=== PATIENT | male | born 1935 | race Caucasian/White ===

== ENCOUNTER → 2018-01-01 09:23 | Outpatient (CLI) | payer MEDICARE, SELFPAY ==
[2018-01-01 10:48] LABS: Add Manual Diff / Slide Review NO; Basophils Percent Auto 0.9 % (0-2); Eosinophils Percent Auto 3.2 % (2-4); Hematocrit 37.1 % (41-53); Hemoglobin 12.9 g/dL (13.5-17.5); Lymphocytes Percent Auto 24.1 % (25-40); Mean Corpuscular HGB Conc 34.9 % (30-36); Mean Corpuscular Hemoglobin 36.4 PG (26-34); Mean Corpuscular Volume 104.5 fL (80-100); Monocytes Percent Auto 20.7 % (3-14); Neutrophils Absolute Auto 2400 /uL (3000-5900); Neutrophils Percent Auto 51.1 % (50-75); Platelet Count 259 X10^3/uL (150-400); Red Blood Cell Count 3.55 X10^6/uL (4.5-5.9); Red Cell Distribution Width 15.5 % (11.6-14.8); White Blood Cell Count 4.6 X10^3/uL (4.5-11.0)
[2018-01-01 11:06] LABS: Alanine Aminotransferase 30 IU/L (21-72); Albumin 4.2 g/dL (3.5-5.0); Albumin Globulin Ratio 1.3 (1.0-2.8); Alkaline Phosphatase 55 U/L (38-126); Aspartate Aminotransferase 32 IU/L (17-59); BUN Creatinine Ratio 28.6 (6-22); Bilirubin Total 0.7 mg/dL (0.2-1.3); Calcium 8.9 mg/dL (8.4-10.2); Cholesterol 148 mg/dL (140-199); Estimated Glomerular Filt Rate > 60.0 mL/min (>60); Globulin 3.3 g/dL (1.7-4.1); Glucose 102 mg/dL (80-110); HDL Cholesterol 39 mg/dL (40-60); HEMOLYSIS < 15 (0-50); LDL Cholesterol Calculated 90 mg/dL (<100); Potassium 4.5 mmol/L (3.4-5.1); Sodium 140 mmol/L (137-145); Total Protein 7.5 g/dL (6.3-8.2); Triglycerides 96 mg/dL (35-150)
[2018-01-01 11:36] LABS: Prostate Specific Antigen Scrn 1.01 ng/mL (0.1-4.0)
[2018-01-01 11:37] LABS: TSH w/ Reflex to FT4 4.29 uIU/mL (0.47-4.68)
== END ==
PROVIDERS: PCP Family Medicine; Visit Provider Family Medicine
DX: I25.10 Atherosclerotic heart disease of native coronary artery without angina pectoris (principal); I10 Essential (primary) hypertension; E78.5 Hyperlipidemia, unspecified; Z51.81 Encounter for therapeutic drug level monitoring; I48.2 Chronic atrial fibrillation
CPT/HCPCS: 36415; 80053; 80061; 84443; 85025; G0103

== ENCOUNTER → 2019-10-21 11:29 | Outpatient (CLI) | payer MEDICARE, SELFPAY ==
[2019-10-21 12:55] LABS: Add Manual Diff / Slide Review NO; Basophils Absolute Auto 0 /uL (0-100); Basophils Percent Auto 0.9 % (0-2); Eosinophils Absolute Auto 100 /uL (0-450); Eosinophils Percent Auto 2.2 % (2-4); Hematocrit 36.5 % (41-53); Hemoglobin 12.5 g/dL (13.5-17.5); Lymphocytes Absolute Auto 900 /uL (1100-4500); Lymphocytes Percent Auto 21.8 % (25-40); Mean Corpuscular HGB Conc 34.4 % (30-36); Mean Corpuscular Hemoglobin 37.6 PG (26-34); Mean Corpuscular Volume 109.3 fL (80-100); Monocytes Absolute Auto 800 /uL (0-900); Monocytes Percent Auto 18.9 % (3-14); Neutrophils Absolute Auto 2300 /uL (1500-7000); Neutrophils Percent Auto 56.2 % (50-75); Platelet Count 260 X10^3/uL (150-400); Red Blood Cell Count 3.34 X10^6/uL (4.5-5.9); Red Cell Distribution Width 13.9 % (11.6-14.8)
[2019-10-21 13:07] LABS: Alanine Aminotransferase 19 IU/L (<50); Albumin 4.5 g/dL (3.5-5.0); Albumin Globulin Ratio 1.5 (1.0-2.8); Alkaline Phosphatase 63 U/L (38-126); Aspartate Aminotransferase 38 IU/L (17-59); BUN Creatinine Ratio 26.7 (6-22); Blood Urea Nitrogen 23 mg/dL (9-20); Calcium 9.4 mg/dL (8.4-10.2); Carbon Dioxide 29 mmol/L (22-32); Chloride 101 mmol/L (98-107); Cholesterol 155 mg/dL (140-199); Estimated Glomerular Filt Rate > 60.0 mL/min (>60); Globulin 3.1 g/dL (1.7-4.1); Glucose 98 mg/dL (80-110); HDL Cholesterol 44 mg/dL (40-60); HEMOLYSIS < 15 (0-50); LDL Cholesterol Calculated 94 mg/dL (<100); Potassium 5.3 mmol/L (3.4-5.1); Sodium 138 mmol/L (137-145); Total Protein 7.6 g/dL (6.3-8.2); Triglycerides 83 mg/dL (35-150)
[2019-10-21 15:06] LABS: TSH w/ Reflex to FT4 5.16 uIU/mL (0.47-4.68)
[2019-10-21 16:11] LABS: Free T4, Direct Thyroxine 1.09 ng/dL (0.78-2.19)
== END ==
PROVIDERS: Family Provider Family Medicine; PCP Family Medicine; Referring Provider Family Medicine; Visit Provider Family Medicine
DX: E78.5 Hyperlipidemia, unspecified (principal); I10 Essential (primary) hypertension; I25.10 Atherosclerotic heart disease of native coronary artery without angina pectoris; I48.20 Chronic atrial fibrillation, unspecified
CPT/HCPCS: 36415; 80053; 80061; 84439; 84443; 85025

== ENCOUNTER → 2020-01-22 09:24 | Outpatient (CLI) | payer MEDICARE, SELFPAY ==
[2020-01-22 11:17] LABS: HEMOLYSIS < 15 (0-50); Iron 94 ug/dL (49-181)
[2020-01-22 11:28] LABS: Percent Iron Saturation 35 % (20-50); Total Iron Binding Capacity 271 ug/dL (261-462); Transferrin 191 mg/dL (206-381)
[2020-01-22 11:36] LABS: Ferritin 468 ng/mL (18-464)
[2020-01-22 12:06] LABS: Folate > 20.0 ng/mL (2.76-20.0); Vitamin B12 551 pg/mL (239-931)
== END ==
PROVIDERS: Family Provider Family Medicine; PCP Family Medicine; Referring Provider Family Medicine; Visit Provider Family Medicine
DX: D64.9 Anemia, unspecified (principal)
CPT/HCPCS: 36415; 82607; 82728; 82746; 83540; 83550

== ENCOUNTER 2020-12-27 16:27 | Observation (INO) | payer MEDICARE, SELFPAY ==
[2020-12-27] VITALS (26 sets, daily range): BP systolic 73–118; BP diastolic 39–67; PULSE 41–71; RESP 18–37; TEMP 36.2–37.2; O2SAT 89–100; BMI 20.3
--- NOTE | 2020-12-27 16:38 | ED.CHESTPAIN ---
HPI - Chest Pain General Chief Complaint: Chest Pain Stated Complaint: Chest Pain, Hard to Breathe, Shivers, Shoulder Amanuel Time Seen by Provider: 12/27/20 16:28 Source: patient Mode of arrival: Ambulatory Limitations: no limitations History of Present Illness HPI narrative: 85M former smoker with history of atrial fibrillation and hypertension presents with a chief complaint of a few hours of sharp and stabbing pain in his upper back between his shoulder blades. He feels a bit fatigued but is otherwise largely at his baseline. He has free of any fever or chills. He denies nausea, vomiting or diarrhea. He denies any changes medications. He has had no recent travel, hemoptysis or history of known cancer MD complaint: chest pain Onset (ago): hour(s) Duration: constant Onset: during rest Pain location: other Severity: moderate Quality: sharp Pain radiation: back Relieving factors: nothing Exacerbating factors: nothing Related Data Home Medications Medication Instructions Recorded Confirmed MULTIVITAMIN (One Daily 1 tab PO QDAY #0 01/02/12 12/27/20 Multivitamin) Previous Rx's Medication Instructions Recorded ciclopirox 8 % topical solution See Rx Instructions TOP DAILY #6.6 06/25/18 ml digoxin 125 mcg (0.125 mg) tablet 125 mcg PO Q DAY #90 tab 01/19/20 pravastatin 20 mg tablet 20 mg PO QDAY #90 tab 01/19/20 diltiazem HCl 180 mg capsule,24 180 mg PO DAILY #90 cap 01/27/20 hr,extended release lisinopril 20 mg tablet 20 mg PO DAILY #90 tab 02/18/20 omeprazole 20 mg capsule,delayed 20 mg PO QDAY #90 tab 08/23/20 release warfarin 5 mg tablet 5 mg PO SEE INSTRUCTIONS #100 tab 09/02/20 Allergies Allergy/AdvReac Type Severity Reaction Status Date / Time No Known Drug Allergies Allergy Verified 05/22/20 14:07 Review of Systems Constitutional Constitutional: Denies chills, Denies fatigue, Denies fever(s), Denies frequent falls, Denies lethargy and Denies weakness Eyes Eyes: Denies change in vision, Denies eye discharge, Denies irritation and Denies loss of vision ENT Ears, Nose, Mouth, and Throat: Denies change in voice, Denies dizziness, Denies neck pain, Denies sore throat and Denies throat swelling Cardiovascular Cardiovascular: Reports chest pain, Denies irregular heart rhythm, Denies lightheadedness, Denies palpitations, Denies dyspnea, Denies dyspnea on exertion and Denies orthopnea Respiratory Respiratory: Denies cough, Denies dyspnea, Denies dyspnea on exertion and Denies wheezing Gastrointestinal Gastrointestinal: Denies abdominal pain, Denies change in bowel habits, Denies diarrhea, Denies nausea and Denies vomiting Musculoskeletal Musculoskeletal: Denies neck pain and Denies numbness Integumentary/Breasts Skin/Breast: Denies pruritus, Denies erythema, Denies rash and Denies wounds Neurologic Neurologic: Denies behavioral changes, Denies confusion, Denies dizziness, Denies frequent falls, Denies loss of vision, Denies numbness and Denies weakness Psychiatric Psychiatric: Denies anxiety, Denies behavioral changes, Denies confusion, Denies depression, Denies homicidal ideation and Denies suicidal ideation Endocrine Endocrine: Denies fatigue, Denies flushing and Denies palpitations Hematologic/Lymphatic Hematologic/Lymphatic: Denies easy bruising Allergic/Immunologic Allergic/Immunologic: Denies urticaria, Denies throat swelling and Denies wheezing Patient History Medical History Bradycardia Cataract (2012) Chicken pox Chronic atrial fibrillation (2000) Colon polyps Coronary artery disease (1995) Diverticular disease Eczema Elevated PSA Essential hypertension (08/22/16) Hyperlipidemia (07/24/11) Measles Melanoma (2008) Mumps Osteoarthritis (arthritis due to wear and tear of joints) Surgical History History of colonoscopy with polypectomy (08/21/12) Status post appendectomy Social History marital status: household members: spouse Smoking Status: Former smoker alcohol intake: never substance use type: does not use Smoking Status: Former smoker Exam Narrative Exam Narrative: GENERAL: [85] year old patient appears stated age. Well-nourished, well-developed patient, in mild distress. HEAD: Atraumatic. Normocephalic. EYES: Pupils equal round and reactive. Extraocular motions intact. No scleral icterus. No injection or drainage. ENT: Nose without bleeding, purulent drainage. Throat without erythema, tonsillar hypertrophy or exudate. Airway patent. NECK: Trachea midline. Non tender CARDIOVASCULAR: Tachycardic and irregular rhythm without murmurs, gallops, or rubs. RESPIRATORY: Clear to auscultation. Breath sounds equal bilaterally. No wheezes, rales, or rhonchi. GASTROINTESTINAL: Abdomen soft, non-tender, nondistended. EXTREMITIES: No edema or joint tenderness. BACK: Nontender without deformity or crepitance. No flank tenderness. NEURO: AOx3. SKIN: No rash or erythema of visible areas Initial Vital Signs Initial Vital Signs: Vital Signs Temperature 97.1 F L 12/27/20 16:46 Pulse Rate 41 L 12/27/20 16:46 Respiratory Rate 24 12/27/20 16:46 Blood Pressure 84/49 L 12/27/20 16:46 Pulse Oximetry 99 12/27/20 16:46 Course Orders Ordered: ED Orders 12/27/20 16:39 EKG-12 Lead Stat 12/27/20 16:45 Complete Blood Count AUTO DIFF Stat Comprehensive Metabolic Panel Stat Digoxin Stat Lipase Stat Prothrombin Time INR Stat Troponin & CK Cardiac Panel Stat 12/27/20 17:26 CT angio chest abdomen pelvis Stat 12/27/20 18:05 COVID19 - ADMIT (EARLY INTERVENTION SPECIALIST swab/PCR) Stat 12/27/20 18:58 EKG-12 Lead Stat 12/27/20 19:15 NT-proBNP (BNP-Adult 18+) Stat Trop I [Troponin I] Stat 12/28/20 01:00 Troponin I Q8H 12/28/20 06:06 EC echo doppler complete Urgent 12/28/20 09:00 Troponin I Q8H Acetaminophen (Acetaminophen 325 Mg Tablet) 650 mg PO Q6HR PRN PRN Reason: Fever/Mild Pain (1-3) Hydrocodone Bitart/Acetaminophen (Hydrocodone/Acet 5/325 Tablet) 1 tab PO Q4HR PRN PRN Reason: Pain, Moderate (4-6) Digoxin (Digoxin 0.125 Mg Tablet) 0.125 mg PO DAILY CRISTIAN Diltiazem HCl (Diltiazem Cd 180 Mg Cap) 180 mg PO DAILY CRISTIAN Morphine Sulfate (Morphine 2 Mg/Ml Inj) 2 mg IV Q5MIN PRN PRN Reason: Chest Pain Multivitamins (Multivitamin 1 Tablet) 1 tab PO DAILY CRISTIAN Naloxone HCl (Naloxone 0.4 Mg/Ml Vial) 0.2 mg IV Q2MIN PRN PRN Reason: Opiate Reversal Nitroglycerin (Nitroglycerin 0.4 Mg Sl Tab) 0.4 mg SL [id number] PRN PRN Reason: Chest Pain Pantoprazole Sodium (Pantoprazole Dr 20 Mg Tablet) 20 mg PO 0600 CRISTIAN Pravastatin Sodium (Pravastatin 20 Mg Tablet) 20 mg PO DAILY CRISTIAN Discontinued Medications Sodium Chloride (Normal Saline 0.9%) 1,000 mls @ 150 mls/hr IV CONT CRISTIAN Last Infusion: 12/27/20 19:02 Dose: 0 mls/hr Documented by: Admin: 12/27/20 16:56 Dose: 150 mls/hr Documented by: RODOLFO Reevaluation(s) Reevaluation #1: Soon after patient placed in the room and wall preparing his evaluation he converts from a rapid atrial fibrillation to a bradycardia. Along with this his heart rate drops into the 40s and his pressures follows into the 70s. He is given atropine 0.5 mg IV and has an excellent response with heart rate increasing to the 60s or 70s and a blood pressure to 110. He does still have sharp pain in his back 1899 -patient continues to be stable with normalized heart rate and blood pressure. He does still have some pain in his back. Labs have been otherwise reassuring, extensive imaging show no gas trapping findings such as dissection, pulmonary embolism, AAA, pericardial effusion or other. Discussed this case with Dr. Marcum who is on-call for the patient's PCP and is happy to accept him on his service Vital Signs Vital signs: Vital Signs - 8 hr 12/27/20 16:46 12/27/20 16:48 12/27/20 16:50 Temperature 97.1 F L Pulse Rate 41 L 45 L 42 L Respiratory Rate 24 22 22 Blood Pressure 84/49 L 84/49 L 78/39 L Pulse Oximetry 99 92 12/27/20 16:52 12/27/20 17:00 12/27/20 17:10 Temperature Pulse Rate 41 L 53 L 62 Respiratory Rate 18 20 22 Blood Pressure 73/41 L 94/55 L 97/55 L Pulse Oximetry 92 97 89 L 12/27/20 17:20 12/27/20 17:21 12/27/20 17:30 Temperature Pulse Rate 62 63 61 Respiratory Rate 21 21 23 Blood Pressure 93/45 L 95/52 L Pulse Oximetry 98 98 97 12/27/20 17:40 12/27/20 17:41 12/27/20 17:50 Temperature Pulse Rate 57 L 61 62 Respiratory Rate 24 27 H Blood Pressure 98/55 L 91/52 L Pulse Oximetry 98 97 97 12/27/20 17:55 12/27/20 18:00 12/27/20 18:10 Temperature Pulse Rate 62 63 71 Respiratory Rate 20 21 26 H Blood Pressure 109/56 L 110/53 L 97/55 L Pulse Oximetry 97 99 95 12/27/20 18:20 12/27/20 18:21 12/27/20 18:30 Temperature Pulse Rate 63 60 64 Respiratory Rate 21 20 26 H Blood Pressure 118/55 L 96/49 L Pulse Oximetry 100 12/27/20 18:40 12/27/20 18:50 12/27/20 19:00 Temperature Pulse Rate 67 62 58 L Respiratory Rate 31 H 18 25 H Blood Pressure 101/67 115/55 L 109/55 L Pulse Oximetry 97 99 98 12/27/20 19:10 12/27/20 19:25 12/27/20 19:28 Temperature 99.0 F Pulse Rate 62 65 66 Respiratory Rate 37 H 24 18 Blood Pressure 114/58 L Pulse Oximetry 98 98 12/27/20 19:30 Temperature Pulse Rate 66 Respiratory Rate 26 H Blood Pressure Pulse Oximetry MDM - Chest Pain Lab Data Result diagrams: 12/27/20 16:45 12/27/20 16:45 Labs: Lab Results 12/27/20 12/27/20 12/27/20 Range/Units 16:45 16:45 16:45 WBC 8.7 (4.5-11.0) X10^3/uL RBC 3.26 L (4.5-5.9) X10^6/uL Hgb 12.1 L (13.5-17.5) g/dL Hct 35.7 L (41-53) % MCV 109.5 H (80-100) fL MCH 37.1 H (26-34) PG MCHC 33.9 (30-36) % RDW 14.3 (11.6-14.8) % Plt Count 247 (150-400) X10^3/uL Neut % (Auto) 78.7 H (50-75) % Lymph % (Auto) 8.2 L (25-40) % [place] % (Auto) 12.4 (3-14) % Eos % (Auto) 0.3 L (2-4) % Baso % (Auto) 0.4 (0-2) % Neut # (Auto) 6900 (5512-4201) /uL Lymph # (Auto) 700 L (7400-7750) /uL [place] # (Auto) 1100 H (0-900) /uL Eos # (Auto) 0 (0-450) /uL Baso # (Auto) 0 (0-100) /uL PT 36.4 H (10.1-12.7) SECONDS INR 3.2 H (0.9-1.3) Sodium 136 L (137-145) mmol/L Potassium 3.6 (3.4-5.1) mmol/L Chloride 100 (98-107) mmol/L Carbon Dioxide 28 (22-32) mmol/L BUN 24 H (9-20) mg/dL Creatinine 0.72 (0.66-1.25) mg/dL Estimated GFR > 60.0 (>60) mL/min BUN/Creatinine Ratio 33.3 H (6-22) Glucose 137 H (80-110) mg/dL Calcium 9.3 (8.4-10.2) mg/dL Total Bilirubin 1.0 (0.2-1.3) mg/dL AST 38 (17-59) IU/L ALT 21 (<50) IU/L Alkaline Phosphatase 72 (38-126) U/L Total Creatine Kinase 141 (55-170) U/L CK-MB (CK-2) 4.14 H (<2.37) ng/mL CK-MB (CK-2) Rel Index 2.9 (1.5-5.0) % Troponin I < 0.012 (0.01-0.034) ng/mL NT-Pro-B Natriuret Pep (<450) pg/mL Total Protein 7.6 (6.3-8.2) g/dL Albumin 4.4 (3.5-5.0) g/dL Globulin 3.2 (1.7-4.1) g/dL Albumin/Globulin Ratio 1.4 (1.0-2.8) Lipase 108 (23-300) U/L Digoxin (0.8-2.0) ng/mL SARS-CoV-2 (PCR) (Negative) 12/27/20 12/27/20 12/27/20 Range/Units 16:45 18:05 19:15 WBC (4.5-11.0) X10^3/uL RBC (4.5-5.9) X10^6/uL Hgb (13.5-17.5) g/dL Hct (41-53) % MCV (80-100) fL MCH (26-34) PG MCHC (30-36) % RDW (11.6-14.8) % Plt Count (150-400) X10^3/uL Neut % (Auto) (50-75) % Lymph % (Auto) (25-40) % [place] % (Auto) (3-14) % Eos % (Auto) (2-4) % Baso % (Auto) (0-2) % Neut # (Auto) (7307-8012) /uL Lymph # (Auto) (1612-7752) /uL [place] # (Auto) (0-900) /uL Eos # (Auto) (0-450) /uL Baso # (Auto) (0-100) /uL PT (10.1-12.7) SECONDS INR (0.9-1.3) Sodium (137-145) mmol/L Potassium (3.4-5.1) mmol/L Chloride (98-107) mmol/L Carbon Dioxide (22-32) mmol/L BUN (9-20) mg/dL Creatinine (0.66-1.25) mg/dL Estimated GFR (>60) mL/min BUN/Creatinine Ratio (6-22) Glucose (80-110) mg/dL Calcium (8.4-10.2) mg/dL Total Bilirubin (0.2-1.3) mg/dL AST (17-59) IU/L ALT (<50) IU/L Alkaline Phosphatase (38-126) U/L Total Creatine Kinase (55-170) U/L CK-MB (CK-2) (<2.37) ng/mL CK-MB (CK-2) Rel Index (1.5-5.0) % Troponin I < 0.012 (0.01-0.034) ng/mL NT-Pro-B Natriuret Pep 1010 H (<450) pg/mL Total Protein (6.3-8.2) g/dL Albumin (3.5-5.0) g/dL Globulin (1.7-4.1) g/dL Albumin/Globulin Ratio (1.0-2.8) Lipase (23-300) U/L Digoxin 0.9 (0.8-2.0) ng/mL SARS-CoV-2 (PCR) Negative (Negative) Imaging Data CT scan - chest: Radiologist's Impression: [address] [id number] Scan ReportSigned Patient: Da Nevarez EMR#: [id number]: [id number]:[id number]/Sex: 85 / MDate of Service: 12/27/20Loc: EDAccession Number: [id number] Procedure: CT angio chest abdomen pelvis Ordering Provider: Donte Cline D.O. PROCEDURE: CT ANGIO CHEST ABDOMEN PELVIS INDICATIONS: chest pain, SOB, back pain TECHNIQUE: Precontrast 5 mm thick sections acquired from the lung apices to the iliac crests. After the administration of intravenous contrast, 2.5 mm thick sections again acquired from the lung apices to the iliac crests. Maximum intensity projection (MIP) sagittal and coronal reformats were then acquired. For radiation dose reduction, the following was used: automated exposure control. COMPARISON: None. FINDINGS: Image quality: 66 AORTA: The aortic valve is densely calcified. There is mild to moderate atherosclerotic vascular calcification involving the aortic arch and descending thoracic aorta. No evidence of aneurysm or dissection. Origins of the great vessels are widely patent. In the abdomen, there is dense atherosclerotic vascular calcification without aneurysm or dissection. Origins of the celiac, SMA and renal vessels are patent. Moderate stenosis of the origin of the right common iliac noted. CHEST: Lungs and pleura: No acute airspace opacities. No pleural effusions or pneumothorax. Central and peripheral airways are patent and normal in caliber. 266 Mediastinum: Heart size is enlarged. No pericardial effusion. No mediastinal or hilar adenopathy by size criteria. Central pulmonary arteries are normal in size. Esophagus is normal in caliber. No hiatal hernias. Bones and chest wall: No axillary adenopathy by size criteria. Thyroid gland unremarkable. No suspicious bony lesions. No vertebral body compression fractures. ABDOMEN: Vasculature: Celiac trunk and mesenteric arteries are patent. Renal arteries are also patent. Solid organs: Liver is normal in size and enhancement. Gallbladder calcified stones noted. No evidence of cholecystitis by CT Biliary system is non dilated. Pancreas enhances normally. Spleen is normal in size and enhancement. No adrenal nodules. Both kidneys are normal in size and enhancement, without hydronephrosis. Peritoneum and bowel: No free fluid or air. Bowel loops are normal in caliber and wall thickness. Nodes and vessels: No retroperitoneal or mesenteric adenopathy by size criteria. Inferior vena cava is normal in morphology. Miscellaneous: No ventral hernias. PELVIS: Genitourinary: Bladder wall thickness is normal. Both arterial phase kidneys unremarkable. Miscellaneous: No inguinal hernias or adenopathy. No ventral hernias. Incidental note is made of bilateral retractile testicles within the inguinal canals Bones: No suspicious bony lesions. No vertebral body compression fractures. 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 IMPRESSION: No evidence of thoracic or abdominal aortic dissection or aneurysm. Diffuse calcified atherosclerotic plaque. Coronary arteries are densely calcified, and there is approximately 60-70 percent stenosis involving proximal right common iliac artery Incidental cholelithiasis without CT evidence of cholecystitis Dictated by: Nolan Uriarte M.D. on 12/27/2020 at 17:00 Approved by: Nolan Uriarte M.D. on 12/27/2020 at 17:18 Discharge Plan Departure Patient Disposition: Admitted as Observation Clinical Impression: Bradycardia Chest pain Qualifiers: Chest pain type: unspecified Qualified Code(s): R07.9 - Chest pain, unspecified Admit Date/Time: 12/27/20 19:33 Admit Provider: Antonio Marcum
[2020-12-27] MEDS: SODIUM CHLORIDE 0.9% 1,000 ML 150 ML IV (16:56)
[2020-12-27 16:57] LABS: Add Manual Diff / Slide Review NO; Basophils Absolute Auto 0 /uL (0-100); Basophils Percent Auto 0.4 % (0-2); Eosinophils Absolute Auto 0 /uL (0-450); Eosinophils Percent Auto 0.3 % (2-4); Hematocrit 35.7 % (41-53); Hemoglobin 12.1 g/dL (13.5-17.5); Lymphocytes Absolute Auto 700 /uL (1100-4500); Lymphocytes Percent Auto 8.2 % (25-40); Mean Corpuscular HGB Conc 33.9 % (30-36); Mean Corpuscular Hemoglobin 37.1 PG (26-34); Mean Corpuscular Volume 109.5 fL (80-100); Monocytes Absolute Auto 1100 /uL (0-900); Monocytes Percent Auto 12.4 % (3-14); Neutrophils Absolute Auto 6900 /uL (1500-7000); Neutrophils Percent Auto 78.7 % (50-75); Platelet Count 247 X10^3/uL (150-400); Red Blood Cell Count 3.26 X10^6/uL (4.5-5.9); Red Cell Distribution Width 14.3 % (11.6-14.8); White Blood Cell Count 8.7 X10^3/uL (4.5-11.0)
[2020-12-27 16:59] LABS: INR 3.2 (0.9-1.3); Prothrombin Time 36.4 SECONDS (10.1-12.7)
[2020-12-27] MEDS: ATROPINE 1 MG/10 ML SYRINGE IV (17:01)
[2020-12-27 17:03] LABS: Alanine Aminotransferase 21 IU/L (<50); Albumin 4.4 g/dL (3.5-5.0); Albumin Globulin Ratio 1.4 (1.0-2.8); Alkaline Phosphatase 72 U/L (38-126); Aspartate Aminotransferase 38 IU/L (17-59); BUN Creatinine Ratio 33.3 (6-22); Blood Urea Nitrogen 24 mg/dL (9-20); Calcium 9.3 mg/dL (8.4-10.2); Carbon Dioxide 28 mmol/L (22-32); Chloride 100 mmol/L (98-107); Creatine Kinase 141 U/L (55-170); Estimated Glomerular Filt Rate > 60.0 mL/min (>60); Globulin 3.2 g/dL (1.7-4.1); Glucose 137 mg/dL (80-110); HEMOLYSIS < 15 (0-50); Lipase 108 U/L (23-300); Potassium 3.6 mmol/L (3.4-5.1); Sodium 136 mmol/L (137-145); Total Protein 7.6 g/dL (6.3-8.2)
[2020-12-27 17:15] LABS: Troponin I < 0.012 ng/mL (0.01-0.034)
[2020-12-27 17:18] LABS: CKMB % Relative Index 2.9 % (1.5-5.0); Creatine Kinase MB 4.14 ng/mL (<2.37)
--- NOTE | 2020-12-27 17:26 | DI.CT.S_ITS ---
PROCEDURE: CT ANGIO CHEST ABDOMEN PELVIS INDICATIONS: chest pain, SOB, back pain TECHNIQUE: Precontrast 5 mm thick sections acquired from the lung apices to the iliac crests. After the administration of intravenous contrast, 2.5 mm thick sections again acquired from the lung apices to the iliac crests. Maximum intensity projection (MIP) sagittal and coronal reformats were then acquired. For radiation dose reduction, the following was used: automated exposure control. COMPARISON: None. FINDINGS: Image quality: 66 AORTA: The aortic valve is densely calcified. There is mild to moderate atherosclerotic vascular calcification involving the aortic arch and descending thoracic aorta. No evidence of aneurysm or dissection. Origins of the great vessels are widely patent. In the abdomen, there is dense atherosclerotic vascular calcification without aneurysm or dissection. Origins of the celiac, SMA and renal vessels are patent. Moderate stenosis of the origin of the right common iliac noted. CHEST: Lungs and pleura: No acute airspace opacities. No pleural effusions or pneumothorax. Central and peripheral airways are patent and normal in caliber. 266 Mediastinum: Heart size is enlarged. No pericardial effusion. No mediastinal or hilar adenopathy by size criteria. Central pulmonary arteries are normal in size. Esophagus is normal in caliber. No hiatal hernias. Bones and chest wall: No axillary adenopathy by size criteria. Thyroid gland unremarkable. No suspicious bony lesions. No vertebral body compression fractures. ABDOMEN: Vasculature: Celiac trunk and mesenteric arteries are patent. Renal arteries are also patent. Solid organs: Liver is normal in size and enhancement. Gallbladder calcified stones noted. No evidence of cholecystitis by CT Biliary system is non dilated. Pancreas enhances normally. Spleen is normal in size and enhancement. No adrenal nodules. Both kidneys are normal in size and enhancement, without hydronephrosis. Peritoneum and bowel: No free fluid or air. Bowel loops are normal in caliber and wall thickness. Nodes and vessels: No retroperitoneal or mesenteric adenopathy by size criteria. Inferior vena cava is normal in morphology. Miscellaneous: No ventral hernias. PELVIS: Genitourinary: Bladder wall thickness is normal. Both arterial phase kidneys unremarkable. Miscellaneous: No inguinal hernias or adenopathy. No ventral hernias. Incidental note is made of bilateral retractile testicles within the inguinal canals Bones: No suspicious bony lesions. No vertebral body compression fractures. 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 IMPRESSION: No evidence of thoracic or abdominal aortic dissection or aneurysm. Diffuse calcified atherosclerotic plaque. Coronary arteries are densely calcified, and there is approximately 60-70 percent stenosis involving proximal right common iliac artery Incidental cholelithiasis without CT evidence of cholecystitis Dictated by: Nolan Uriarte M.D. on 12/27/2020 at 17:00 Approved by: Nolan Uriarte M.D. on 12/27/2020 at 17:18
[2020-12-27 17:34] LABS: Digoxin 0.9 ng/mL (0.8-2.0)
[2020-12-27 19:16] LABS: COVID19 - ADMIT (NP swab/PCR) Negative (Negative)
[2020-12-27 19:47] LABS: NT-proBNP (BNP-Adult 18+) 1010 pg/mL (<450); Troponin I < 0.012 ng/mL (0.01-0.034)
--- NOTE | 2020-12-27 21:46 | PC.NURSE ---
Admission note: Pt arrives from ER via stretcher, s/p tachycardia and bradycardia in ER with administration of atropine in ER. Pt had arrived in ER with pain in scapulae up to 04/22. Patient arrived with no pain, but when asked specifically, pt said yes to discomfort in his back. Pt with edema in BLE. Arrives in a-fib with HR 60s-70s. Pt denies SOB, Chest pain, chest pressure or cardiac symptoms. Pt reports that the original chest to arm to back pain that brought him into the hospital has resolved and he now reports discomfort in his back. RA, SPO2 mid 90s, lungs CTA. Pt denies nausea, good appetite. Abdomen soft and non-tender. Pt's daughter accompanies pt to hospital. Call light in reach. Will notify MD with changes.
[2020-12-28] VITALS: O2SAT 100
[2020-12-28 00:05] VITALS: BP 97/52; PULSE 74; RESP 25; TEMP 37.2; O2SAT 98
--- NOTE | 2020-12-28 01:04 | PC.NURSE ---
0015- Patient assisted to the bathroom. Gait is unsteady. Daughter reports this is unusual for patient. Patient does feel weak but denies feeling faint or dizzy. BP is soft. Patient in AFib/CVR. Will monitor, bed alarm is on.
[2020-12-28 01:05] LABS: Troponin I 0.016 ng/mL (0.01-0.034)
[2020-12-28 05:32] VITALS: BP 109/56
--- NOTE | 2020-12-28 06:06 | DI.ECHO.S_ITS ---
[facility] +---------+ : : [address] : : : : [id number] : : : : Phone: [phone]+ Echocardiogram Report + + :Name: KANG OCHOA Study Date: 12/28/2020 Height: 68 in : :[facility] ReadingLocation: Weight: 134 lb : : Gender: Male BSA: 1.7 m2 : :: 1935 Age: 85 yrs BP: 109/56 mmHg: :Reason For Study: AFIB/ BRADYCARDIA : :Ordering Physician: SHERON, : :PAULIE Baron Performed By: Kristy Houston : :Referring: PAULIE HOLBROOK : + + Interpretation Summary Left ventricular wall thickness is mild-moderately increased. Left ventricular systolic function appears normal without focal wall motion abnormalities. The ejection fraction is estimated to be 65-70%. Diastolic function could not be accurately assessed due to atrial fibrillation. The right ventricle is normal size. Right ventricular systolic function is at the lower limits of normal. The right ventricular systolic pressure is estimated to be at least 51 mmHg based on an estimated right atrial pressure of 15 mm Hg. Both atria are severely dilated. There is mild mitral regurgitation. The aortic valve is severely calcified. There is severe aortic stenosis. The peak aortic velocity is 4.7 m/sec. The calculated aortic valve area is 0.77 cm2. The aortic valve mean gradient is 50 mmHg. There is mild aortic regurgitation which has decreased since prior study. is new since prior study. There is moderate tricuspid regurgitation. There is no other significant valvular heart disease. The ascending aorta is moderately enlarged. There is a trivial to small pericardial effusion noted. Procedure: A two-dimensional transthoracic echocardiogram with color flow and Doppler was performed. The study quality was technically adequate. Comparison is made with the echocardiogram of 12/13/2016. The patient was in atrial fibrillation with heart rates between 62-73 bpm during the exam. Left Ventricle: The left ventricle is normal in size. Left ventricular wall thickness is mild-moderately increased. Left ventricular systolic function appears normal without focal wall motion abnormalities. The ejection fraction is estimated to be 65-70%. Diastolic function could not be accurately assessed due to atrial fibrillation. Right Ventricle: The right ventricle is normal size. Right ventricular systolic function is at the lower limits of normal. Atria: Both atria are severely dilated. There is no Doppler evidence for an interatrial shunt. Mitral Valve: The mitral valve leaflets are mildly calcified. There is mild mitral annular calcification. There is mild mitral regurgitation. Aortic Valve: The aortic valve is severely calcified. There is severe aortic stenosis. The peak aortic velocity is 4.7 m/sec. The aortic valve mean gradient is 50 mmHg. Aortic valve velocity ratio is 0.21. The calculated aortic valve area is 0.77 cm2. There is mild aortic regurgitation. Tricuspid Valve: The tricuspid valve is normal in structure and function. There is moderate tricuspid regurgitation. The right ventricular systolic pressure is estimated to be at least 51 mmHg based on an estimated right atrial pressure of 15 mm Hg. Pulmonic Valve: The pulmonic valve leaflets are thin and pliable; valve motion is normal. There is a trace or physiologic amount of pulmonic regurgitation. There is no other significant valvular heart disease. Great Vessels: The aortic root is normal size. The ascending aorta is moderately enlarged. The IVC is dilated (diameter is greater than 2.1 cm) and it collapses less than 50% with a sniff. This suggests a high right atrial pressure of 15 mm Hg. Pericardium/ Pleura There is a trivial to small pericardial effusion noted. There is no pleural effusion. MMode/2D Measurements & Calculations LVIDd: 4.7 cm LVOT diam: 2.2 cm LVIDs: 2.9 cm Ao root diam: 3.5 cm FS: 37.6 % asc Aorta Diam: 4.2 cm EPSS: 1.3 cm IVSd: 1.2 cm LVPWd: 1.5 cm LV adams. diameter/BSA (cm/m^2): 2.7 LV sys. diameter/BSA (cm/m^2): 1.7 LA A2 area: 40.0 cm2 RA long axis: 7.6 cm LA A4 area: 34.3 cm2 RA area: 37.2 cm2 LA length (vol): 7.4 cm RA vol: 155.9 ml LA vol: 156.6 ml RA : 90.4 ml/m2 LA vol index: 90.8 ml/m2 IVC diam: 2.6 cm RVD1 (basal): 3.2 cm TAPSE: 1.6 cm Doppler Measurements & Calculations Ao V2 max: 472.9 cm/sec LVOT Max Brad: 94.3 cm/sec Ao V2 mean: 334.0 cm/sec LV V1 max P.6 mmHg Ao max P.4 mmHg LV V1 VTI: 19.5 cm Ao mean P.9 mmHg GURDEEP(I,D): 0.78 cm2 Ao V2 VTI: 94.1 cm GURDEEP(V,D): 0.75 cm2 sev ratio: 0.21 GURDEEP indexed to BSA (cm^2/m^2): 0.45 MV E max brad: 121.2 cm/sec TR max brad: 301.8 cm/sec Med Peak E' Brad: 7.6 cm/sec TR max P.4 mmHg E/E' med: 16.0 PA V2 max: 237.0 cm/sec Lat Peak E' Brad: 7.7 cm/sec PA V2 mean: 174.0 cm/sec E/E' lat: 15.7 PA mean P.7 mmHg E/e' average: 15.9 PA pr(Accel): 61.0 mmHg MV dec time: 0.21 sec SV(LVOT): 73.1 ml Reading Physician:01:34 PM
[2020-12-28] MEDS: PANTOPRAZOLE DR 20 MG TABLET PO (06:12)
--- NOTE | 2020-12-28 07:32 | P.HP_ITS ---
History of Present Illness History of Present Illness Date Patient Seen: 12/28/20 Time Patient Seen: 07:32 Chief complaint: Chest Pain, Hard to Breathe, Shivers, Shoulder Amanuel Narrative: 85-year-old male with history of atrial fibrillation on anticoagulation coronary artery disease hyperlipidemia and hypertension who in the past was a smoker is admitted with sharp stabbing pain in his chest. Patient lives at home with his . He is the caregiver for her. He is feeling like his increasing did lead difficult to take care of her and their current living circumstance she has a supportive family. Patient states yesterday afternoon early evening he began to have a sharp stab be uncomfortable pain in his chest. It is described as left chest radiating to his back. It is exacerbated by movement and twisting and turning and with deep breaths. The pain was moderate to severe in intensity. Was accompanied by a some mild shortness of breath. That had pain like this before. He describes the pain as gradually resolving after he presented to the emergency department. Then began in the center of his chest. Patient has no current pain now. He does do a lot of chronic caregiving to his . And the pain happened after he was lifting and twisting and moving her into position. The last few days he has had no significant changes in his health. He has been having increasing difficulty with the taking care of his and feeling a little bit stressed in burden by that. He has had some gradual weight loss over the last few months. He takes his medications regularly. He shows up routinely to have his INRs drawn in the clinic. Patient History Medical History Bradycardia Cataract (2012) Chicken pox Chronic atrial fibrillation (2000) Colon polyps Coronary artery disease (1995) Diverticular disease Eczema Elevated PSA Essential hypertension (08/22/16) Hyperlipidemia (07/24/11) Measles Melanoma (2008) Mumps Osteoarthritis (arthritis due to wear and tear of joints) Surgical History History of colonoscopy with polypectomy (08/21/12) Status post appendectomy Family & Social History Social History: household members spouse Prior Living Arrangements House Safety & Behavioral: Feels Safe in Current Yes Environment Been Physically Hurt or No Threatened By a Person Suicidal Ideation Description None Suicide Plan Description No Plan Tobacco & Substance use: Smoking Status Former smoker alcohol intake never Meds Home Medications and Allergies Home Medications Medication Instructions Recorded Confirmed Type MULTIVITAMIN (One Daily 1 tab PO QDAY #0 01/02/12 12/27/20 History Multivitamin) ciclopirox 8 % topical solution See Rx Instructions TOP DAILY #6.6 06/25/18 01/22/20 Rx ml digoxin 125 mcg (0.125 mg) tablet 125 mcg PO Q DAY #90 tab 01/19/20 12/27/20 Rx pravastatin 20 mg tablet 20 mg PO QDAY #90 tab 01/19/20 12/27/20 Rx diltiazem HCl 180 mg capsule,24 180 mg PO DAILY #90 cap 01/27/20 12/27/20 Rx hr,extended release lisinopril 20 mg tablet 20 mg PO DAILY #90 tab 02/18/20 12/27/20 Rx omeprazole 20 mg capsule,delayed 20 mg PO QDAY #90 tab 08/23/20 12/27/20 Rx release warfarin 5 mg tablet 5 mg PO SEE INSTRUCTIONS #100 tab 09/02/20 12/27/20 Rx Allergies Allergy/AdvReac Type Severity Reaction Status Date / Time No Known Drug Allergies Allergy Verified 05/22/20 14:07 Exam Vital Signs (past 8 hours): - 12/28/20 00:00 12/28/20 00:05 12/28/20 05:32 Temperature 98.9 F Pulse Rate 74 Respiratory Rate 25 H Blood Pressure 97/52 L 109/56 L Pulse Oximetry 100 98 Oxygen Delivery Method Room Air Oxygen Flow Rate 0 Narrative Exam Narrative: Gen.: Alert and oriented x3 no apparent distress. HEENT: NCAT PERRLA tympanic membranes are clear nares are patent oral mucosa is moist no tonsillar hypertrophy neck is supple without lymphadenopathy no thyroid enlargement. Cardio: S1-S2 irregular rate and rhythm Respiratory: Lungs are clear to auscultation no wheezes or crackles normal respiratory effort. Abdomen: Soft nontender no rebound or guarding no liver spleen enlargement no appreciable hernias Extremities: Full range of motion no appreciable weakness no cyanosis or edema. Neurologic: Grossly intact. Objective Labs Result Diagrams: 12/27/20 16:45 12/27/20 16:45 Labs: Laboratory Results - last 24 hr 12/27/20 12/27/20 12/27/20 16:45 16:45 16:45 WBC 8.7 RBC 3.26 L Hgb 12.1 L Hct 35.7 L MCV 109.5 H MCH 37.1 H MCHC 33.9 RDW 14.3 Plt Count 247 Neut % (Auto) 78.7 H Lymph % (Auto) 8.2 L Pepin % (Auto) 12.4 Eos % (Auto) 0.3 L Baso % (Auto) 0.4 Neut # (Auto) 6900 Lymph # (Auto) 700 L Pepin # (Auto) 1100 H Eos # (Auto) 0 Baso # (Auto) 0 PT 36.4 H INR 3.2 H Sodium 136 L Potassium 3.6 Chloride 100 Carbon Dioxide 28 BUN 24 H Creatinine 0.72 Estimated GFR > 60.0 BUN/Creatinine Ratio 33.3 H Glucose 137 H Calcium 9.3 Total Bilirubin 1.0 AST 38 ALT 21 Alkaline Phosphatase 72 Total Creatine Kinase 141 CK-MB (CK-2) 4.14 H CK-MB (CK-2) Rel Index 2.9 Troponin I < 0.012 NT-Pro-B Natriuret Pep Total Protein 7.6 Albumin 4.4 Globulin 3.2 Albumin/Globulin Ratio 1.4 Lipase 108 Nasal Screen MRSA (PCR) Digoxin SARS-CoV-2 (PCR) 12/27/20 12/27/20 12/27/20 16:45 18:05 19:15 WBC RBC Hgb Hct MCV MCH MCHC RDW Plt Count Neut % (Auto) Lymph % (Auto) Pepin % (Auto) Eos % (Auto) Baso % (Auto) Neut # (Auto) Lymph # (Auto) Pepin # (Auto) Eos # (Auto) Baso # (Auto) PT INR Sodium Potassium Chloride Carbon Dioxide BUN Creatinine Estimated GFR BUN/Creatinine Ratio Glucose Calcium Total Bilirubin AST ALT Alkaline Phosphatase Total Creatine Kinase CK-MB (CK-2) CK-MB (CK-2) Rel Index Troponin I < 0.012 NT-Pro-B Natriuret Pep 1010 H Total Protein Albumin Globulin Albumin/Globulin Ratio Lipase Nasal Screen MRSA (PCR) Digoxin 0.9 SARS-CoV-2 (PCR) Negative 12/27/20 12/28/20 20:00 00:35 WBC RBC Hgb Hct MCV MCH MCHC RDW Plt Count Neut % (Auto) Lymph % (Auto) Pepin % (Auto) Eos % (Auto) Baso % (Auto) Neut # (Auto) Lymph # (Auto) Pepin # (Auto) Eos # (Auto) Baso # (Auto) PT INR Sodium Potassium Chloride Carbon Dioxide BUN Creatinine Estimated GFR BUN/Creatinine Ratio Glucose Calcium Total Bilirubin AST ALT Alkaline Phosphatase Total Creatine Kinase CK-MB (CK-2) CK-MB (CK-2) Rel Index Troponin I 0.016 NT-Pro-B Natriuret Pep Total Protein Albumin Globulin Albumin/Globulin Ratio Lipase Nasal Screen MRSA (PCR) Negative for mrsa Digoxin SARS-CoV-2 (PCR) Assessment & Plan Assessment & Plan narrative: Chest pain. Patient with chest back pain. CT scan of his chest shows no acute aortic dissection or other significant chest wall or lung abnormality. First set of cardiac enzymes is normal 2nd cardiac enzyme is pending. Patient has a history of cardiac disease and atrial fibrillation. He does have a heart murmur present. Echocardiogram is pending at this point. His heart murmur sounds like his systolic heart murmur. This been a number of years since he has had an echocardiogram. Will go ahead and continue with the cardiac serial troponins. To rule out underlying cardiac ischemia. Evaluate his heart murmur further to make sure he does not have critical 8 aortic disease. Atrial fibrillation with chronic anticoagulation. Patient's heart rate is well controlled today. Will hold his warfarin today as INR is a little bit elevated. He will be continued on his calcium channel kentrell and his digoxin. Is this is helping keep his heart rate under control. His blood pressure is a little bit low and has been outside of the hospital were going to half make changes to his Cardizem and decreased the dose from 180-120. Hyperlipidemia. Patient is on a statin we will continue with his statin today. Coronary artery disease. Patient with a history of coronary artery disease he is not on a beta-kentrell. He is on warfarin. Certainly there would be some medication adjustment that would need to happen if he has elevation of his cardiac enzymes. Weight loss. Patient with significant weight loss over the past year. He is taking care of his whose health is quite this severe. He is unable to do this at home. I do not think he is eating well. He is malnourished and has mild nutrition. Who talked with he and his daughter about today about her long- term care plans and goals. I think this is contributing to his dizziness lightheadedness. Disposition and plan. Obtain echocardiogram continue to monitor serial cardiac enzymes if those are normal patient will be discharged home with home PT and OT. If there is a significant disease on his cardiac enzymes or as echocardiogram then will decide where to go.
[2020-12-28 08:00] VITALS: BP 100/56; PULSE 69; RESP 20; TEMP 37.1; O2SAT 97
[2020-12-28] MEDS: DIGOXIN 0.125 MG TABLET PO (09:48)
[2020-12-28] MEDS: dilTIAZem CD 120 MG CAP PO (09:48)
[2020-12-28] MEDS: MULTIVITAMIN 1 TABLET 1 TAB PO (09:48)
[2020-12-28 09:56] VITALS: O2SAT 96
--- NOTE | 2020-12-28 11:00 | PT.IIE ---
Surgical History (Last Reviewed 12/28/20 @ 07:35 by Wong Peterson MD) History of colonoscopy with polypectomy (08/21/12) Status post appendectomy Medical History (Last Reviewed 12/28/20 @ 07:35 by Wong Peterson MD) Bradycardia Cataract (2012) Chicken pox Chronic atrial fibrillation (2000) Colon polyps Coronary artery disease (1995) Diverticular disease Eczema Elevated PSA Essential hypertension (08/22/16) Hyperlipidemia (07/24/11) Measles Melanoma (2008) Mumps Osteoarthritis (arthritis due to wear and tear of joints) Physical Therapy Inpatient Evaluation/Re-Eval M1 PT/OT-IP Prior Functional Status Start: 12/28/20 12:54 Freq: NEEDED Status: Active Protocol: Document 12/28/20 11:00 AB (Rec: 12/28/20 13:06 AB [email or web address]) Medical Review Prior Functional Status Medical History Reviewed Yes Communication able to make needs known Mobility and Gait pt stated that he is modified independent with all mobilities and ambulation without AD; pt is the caregiver for his spouse Social History Household Members spouse Living Arrangements House Number of Floors (Floors) Two Floors Number of Stairs To Enter/Railing? pt stays on main level of the house can get in to the house from the garage without steps to enter Home Environment High Toilet,Walk in Shower, Built-In Shower Seat Home Equipment Four Wheel Walker,Hand Held Shower,Grab Bars In Shower Additional Social History Comment pt takes care of his spouse who needs physical assistance pt sleeps on a chair has a walking stick M2 PT-IP Current Condition Start: 12/28/20 12:54 Freq: NEEDED Status: Active Protocol: Document 12/28/20 11:00 AB (Rec: 12/28/20 13:06 AB [email or web address]) Physical Therapy Current Condition Current Condition Evaluation Date 12/28/20 Treatment Diagnosis A-fib; difficulty in walking Onset Date 12/27/20 Precautions Other Precautions falls M3 PT-IP Subjective Start: 12/28/20 12:54 Freq: NEEDED Status: Active Protocol: Document 12/28/20 11:00 AB (Rec: 12/28/20 13:06 AB [email or web address]) Subjective Physical Therapy Visit Type Type Initial Evaluation Visit Start Time 11:00 Visit Stop Time 11:30 Total Visit Minutes 30 Number of MANAGER ACCESS Visits 0 Physical Therapy Visit Comments Patient Comments pt agreed to do PT M4 PT-IP Mobility and Gait Start: 12/28/20 12:54 Freq: NEEDED Status: Active Protocol: Document 12/28/20 11:00 AB (Rec: 12/28/20 13:06 AB [email or web address]) PT-Transfer Assessment Sit to and From Stand Sit to and from Stand Standby Assistance Equipment Transfer Assistive Device Gait Belt Orthotic/Prosthetic Devices or Brace: No Comments Mobility Comments pt sitting on chair. pt sleeps on his chair at home. bed mobility not completed. pt completed sit to stand SBA. ambulated in room without AD min A and cues. presents with unsteady gait with L knee slightly buckling but pt able to control. assessed ambulation using FWW and completed SBA to CGA 20 ft. educated pt regarding safety as pt can be impulsive. pt does not have a FWW but has a 4WW. assessed ambulation using 4WW and completed SBA to CGA 25 ft. pt sat back on chair and positioned. Daughter in room and pt stated that daughter is an RN. levther stated that they will provide assistance for pt at home and they will also arrange for caregiver to come in to assist. informed pt and daughter regarding HHPT recommendation and agreed. Gait Assessment Gait Gait Assistance Required: Standby Assistance,Contact Guard Assist,Minimum Assistance Distance (Feet) 25 Able to Maintain Weight Bearing Status Yes During Gait Assistive Devices Assistive Device None,Gait Belt,Front Wheeled Walker,4 Wheeled Walker Orthotic/Prosthetic Devices or Brace: No Gait Deviations General Gait Pattern Antalgic,Decreased Stride Length,Decreased Feet Clearance Factors Limiting Gait Function Factors Limiting Gait Function Decreased Activity Tolerance, Decreased Strength,Poor Balance,Poor Safety Awareness Comments Gait Comments pls refer to mobility section for details PT-Balance Assessment Sitting Balance and Reactions Static Sitting Balance Ability Good Dynamic Sitting Balance Ability Good Standing Balance and Reactions Static Standing Balance Ability Fair Dynamic Standing Balance Ability Poor Device Used without AD M5 PT-IP Objective Assessments Start: 12/28/20 12:54 Freq: NEEDED Status: Active Protocol: Document 12/28/20 11:00 AB (Rec: 12/28/20 13:06 AB [id number]) Orientation Orientation/Cognition Level of Alertness Alert Orientation Name,Place,Situation Language Function Ability Hard of Hearing Safety Awareness Decreased Safety Awareness Memory Description No Deficits Noted Gross Range of Motion Lower Extremity ROM Assessment Within Functional Limits Strength Lower Extremity Strength Assessment Left Impaired Knee 3+/5 Comments Strength Comments L genu varum Sensation Assessment Sensation Gross Sensation WNL Muscle Tone Muscle Tone WNL Yes M6 PT-IP Treatment Start: 12/28/20 12:54 Freq: NEEDED Status: Active Protocol: Document 12/28/20 11:00 AB (Rec: 12/28/20 13:06 AB [id number]) Physical Therapy Treatment Education Education Provided Safety M7 PT-IP Assessment and Plan Start: 12/28/20 12:54 Freq: NEEDED Status: Active Protocol: Document 12/28/20 11:00 AB (Rec: 12/28/20 13:06 AB [email or web address]) PT Summary Assessment and Plan Potential Rehabilitation Potential Good Status of Condition at Evaluation Stable Summary Impairments Pain,ROM,Strength,Balance, Coordination,Sensation,Tone, Cognition,Bed Mobility, Transfers,Gait,Activity Tolerance Assessment Summary pt requiring CGA with mobility using FWW/4WW and min A without AD. recommending use of 4WW at this time for safety and will require assistance at home and HHPT. daughter stated that between her and her sister, they will assist pt and will also arrange for caregivers to come in. Goals Transfer Goal Independent,Four Wheeled Walker Gait Goal Independent,Four Wheel Walker Gait Distance 200 Other Goals ambulation without AD SBA 50 ft Days to Meet Goals 5 Frequency of Treatment Frequency Of Treatment Once a Day Treatment Plan Physical Therapy Treatment Plan Bed Mobility Training,Transfer Training,Gait Training, Therapeutic Exercise,Balance Retraining,Discharge Planning, Hot or Cold Pack,Neuromuscular Re-ed,Coordination Retraining Precautions Other Precautions falls Recommendations To Nursing Amount of Assist Needed 1 Person Assist Discharge Recommendations PT Discharge Recommendations Home with Assistance,Home Health Transportation Needs at Discharge Private Vehicle
--- NOTE | 2020-12-28 11:56 | CM.DANOTE ---
Addendum entered by Queta Al R.N. 12/28/20 14:10: Gagandeep Nicole called back, [facility] manager services, and confirmed acceptance of patient. He is on [facility]'s case load. Addendum entered by Queta Al R.N. 12/28/20 13:26: Faxed over referral to [facility]. Electronically faxed over face sheet and H&P. DC Summary is pending. In a separate fax, sent face to face and orders. Called [facility] and let them know that patient is discharging today, as he has DC orders. Spoke to Ese at [facility]. She is familiar with patient's , as she is currently on their case load. Let her know that patient will need nursing, P.T, O.T, and RESOURCE ENGINEER for ideas in caregiving resources. Will fax DC Summary when completed. Original Note: DCP: Case received, EMR reviewed and met with patient. Patient's daughter, No, also at bedside. Was able to obtain information from patient and daughter regarding patient's baseline activity status, as well as his current living situation and history. DCP assessment completed with information currently available. Patient is an 85 year old male who admitted yesterday evening to the care of the hospitalist team. PCP: Dr. Peterson. Payer: confirmed: Medicare/AARP. Patient came to the hospital via private vehicle secondary to having some chest pain, as well as some shortness of breath. Patient was diagnosed with A-fib, and is having an echo today. Met with patient and daughter, No who is an RN that works at [employer]. She gave her phone number as contact: [phone]. Patient resides here in [place] with his spouse, Nisreen. He is her caregiver as well. According to patient and daughter, they have been looking at private caregivers, but haven't had the luck with the hours that they have requested. There are 4 siblings, including No, but do not live locally. is currently under [facility] for her needs, she has limited mobility. Patient is her primary caregiver, he drives, goes to [employer] for shopping, and uses no DME devices. Brought in a Senior Resource Guide. Daughter and patient stated that they had gotten a private caregiver list from [facility]. Asked if this hospital has private caregivers. Let them know that this hospital does not have private caregiver listing, but agencies. Went over some of the home care agencies in the Senior Resources pamphlet. Also, recommended calling [facility] Resources as well. Asked about meals, patient has prepared meals that family sets up as well. Asked daughter about having some family members stay with patient while they are looking for agency resources. Let her and patient know that most care agencies require at least 4 hours minimum of caregiving hours. Also, at one time, some started at $33.00 per hour, may have gone up. Patient and daughter indicated, he does have finances for this. His goal is for he and his to stay at home. 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 Stated that he has a large house, about 3000 square feet, he and his do not use the upstairs, and if someone stays with them, they can use the upstairs. Discussed home health agencies, and patient is opened to home health, and using [employer] as well. Will initiate referral to [facility], and will include RN, P.T., O.T, and will add RESOURCE ENGINEER. Face to face is completed. Will call [facility] about referral as well. Dr. Peterson had come in early this morning and signed face to face and explained situation. P: DCP to continue to follow. According to nurseJuanis, patient should be discharging home today. He was supposed to be working with P.T. as well. Queta Al RN/[facility] Counselor
[2020-12-28 12:00] VITALS: BP 109/57; PULSE 65; RESP 17; TEMP 36.9; O2SAT 98
[2020-12-28 14:10] LABS: Troponin I 0.025 ng/mL (0.01-0.034)
== END 2020-12-28 14:53 | disposition home or self-care (01) ==
LOC: ED 16:41 → ICU 20:02
PROVIDERS: Admitting Provider Internal Medicine; Emergency Provider Emergency Medicine; Family Provider Family Medicine; PCP Family Medicine; Referring Provider Emergency Medicine; Visit Provider Family Medicine
DX: R07.9 Chest pain, unspecified (principal); I48.20 Chronic atrial fibrillation, unspecified; I10 Essential (primary) hypertension; E78.5 Hyperlipidemia, unspecified; I25.10 Atherosclerotic heart disease of native coronary artery without angina pectoris; E46 Unspecified protein-calorie malnutrition; Z20.822 Contact with and (suspected) exposure to COVID-19
CPT/HCPCS: 36415; 71275; 74174; 80053; 80162; 82550; 82553; 83690; 83880; 84484; 85025; 85610; 87635; 87797; 93005; 93010; 93306; 96361; 96374; 97161; 99219; 99285; C9803; G0378; J0461; Q9967

== ENCOUNTER 2021-02-27 09:06 | Emergency (ER) | payer MEDICARE, SELFPAY ==
[2020-12-27 19:45] VITALS: BMI 20.3
--- NOTE | 2021-02-27 09:09 | DI.RAD.S_ITS ---
PROCEDURE: XR CHEST 1V INDICATIONS: Chest pain TECHNIQUE: One view of the chest was acquired. COMPARISON: [facility], , CHEST 2 VIEW, 07/27/2011, 17:13. FINDINGS: Surgical changes and devices: Surgical clips are noted in left axilla.. Lungs and pleura: Lungs are clear. No pleural effusions or pneumothorax. Mediastinum: Mediastinal contours appear normal. Heart size is enlarged. Bones and chest wall: No suspicious bony lesions. Overlying soft tissues appear unremarkable. IMPRESSION: Cardiomegaly. No acute pulmonary pathology. Dictated by: Van Oliveira M.D. on 02/27/2021 at 10:17 Approved by: Van Oliveira M.D. on 02/27/2021 at 10:17
[2021-02-27 09:20] VITALS: BP 147/92; PULSE 64; RESP 18; TEMP 37; O2SAT 98; BMI 18.2
--- NOTE | 2021-02-27 09:33 | ED.CHESTPAIN ---
HPI - Chest Pain General Chief Complaint: Chest Pain Stated Complaint: Chest pains last night. Medic told to come here Time Seen by Provider: 02/27/21 09:26 Source: patient Mode of arrival: Ambulatory Limitations: no limitations History of Present Illness HPI narrative: Male. Is in chronic atrial fibrillation. Is anticoagulated. Does have a heart murmur. Is on the list to have a TAVR but does not have a specific date yet. States that last evening approximately 0200 hours in the morning he had a discomfort on the left side of his chest that he states lasted seconds. He is unsure if he was awake at the time or if it woke him from sleep. EMS came out to the house to evaluate him and recommended that he be transported to the emergency department with the patient declined. He has not had any discomfort since then although he states that when he moves he can reproduce some of the pain. No shortness of breath. Has never had anything like this in the past. Related Data Home Medications Medication Instructions Recorded Confirmed MULTIVITAMIN (One Daily 1 tab PO QDAY #0 01/02/12 01/06/21 Multivitamin) Previous Rx's Medication Instructions Recorded warfarin 5 mg tablet 5 mg PO SEE INSTRUCTIONS #100 tab 09/02/20 digoxin 125 mcg (0.125 mg) tablet 125 mcg PO Q DAY #90 tab 12/29/20 (Lanoxin) pravastatin 20 mg tablet See Rx Instructions .ROUTE 01/25/21 .COMPLEX #90 tab omeprazole 20 mg capsule,delayed 20 mg PO QDAY #90 tab 02/16/21 release diltiazem HCl 120 mg capsule,24 See Rx Instructions .ROUTE 02/18/21 hr,extended release .COMPLEX #60 cap Allergies Allergy/AdvReac Type Severity Reaction Status Date / Time No Known Drug Allergies Allergy Verified 01/06/21 13:40 Review of Systems Constitutional Constitutional: Denies fever(s) and Denies headache(s) Eyes Eyes: Reports system reviewed and no additional complaints, except as documented ENT Ears, Nose, Mouth, and Throat: Denies headache(s) Cardiovascular Cardiovascular: Reports as per HPI Respiratory Respiratory: Reports as per HPI Gastrointestinal Gastrointestinal: Denies abdominal pain, Denies nausea and Denies vomiting Genitourinary Genitourinary: Reports system reviewed and no additional complaints, except as documented Musculoskeletal Musculoskeletal: Reports system reviewed and no additional complaints, except as documented Integumentary/Breasts Skin/Breast: Denies rash Neurologic Neurologic: Denies headache(s) Psychiatric Psychiatric: Reports system reviewed and no additional complaints, except as documented Endocrine Endocrine: Reports system reviewed and no additional complaints, except as documented Hematologic/Lymphatic On Anticoagulants: Yes Allergic/Immunologic Allergic/Immunologic: Reports system reviewed and no additional complaints, except as documented Patient History Medical History Bradycardia Cataract (2012) Chicken pox Chronic atrial fibrillation (2000) Colon polyps Coronary artery disease (1995) Diverticular disease Eczema Elevated PSA Essential hypertension (08/22/16) Hyperlipidemia (07/24/11) Measles Melanoma (2008) Mumps Osteoarthritis (arthritis due to wear and tear of joints) Surgical History History of colonoscopy with polypectomy (08/21/12) Status post appendectomy Social History marital status: household members: spouse Smoking Status: Former smoker alcohol intake: never substance use type: does not use Smoking Status: Former smoker alcohol intake frequency: 0-2 drinks per day Substance Use Type: does not use Exam Initial Vital Signs Initial Vital Signs: Vital Signs Temperature 98.6 F 02/27/21 09:20 Pulse Rate 64 02/27/21 09:20 Respiratory Rate 18 02/27/21 09:20 Blood Pressure 147/92 H 02/27/21 09:20 Pulse Oximetry 98 02/27/21 09:20 Const General: cooperative and comfortable HENMT Head: normal to inspection and normocephalic Eyes General: appearance normal, both eyes and all related structures Chest Chest: No crepitus and No tenderness Resp Effort & Inspection: normal respiratory effort Auscultation: clear to auscultation bilaterally Cardio Rate: regular rate Rhythm: abnormal rhythm Heart Sounds: murmur GI Inspection: normal to inspection Skin General: no rashes or lesions noted Neuro General: patient alert, patient awake and patient oriented x3 Extrem General: normal to inspection and capillary refill normal Psych Appearance: grossly normal and well kempt Course Orders Ordered: ED Orders 02/27/21 09:09 XR chest 1V Stat Complete Blood Count AUTO DIFF Stat Comprehensive Metabolic Panel Stat Lipase Stat Troponin & CK Cardiac Panel Stat EKG-12 Lead Stat 02/27/21 09:41 Prothrombin Time INR Stat Vital Signs Vital signs: Vital Signs - 8 hr 02/27/21 09:20 Temperature 98.6 F Pulse Rate 64 Respiratory Rate 18 Blood Pressure 147/92 H Pulse Oximetry 98 MDM - Chest Pain Lab Data Result diagrams: 02/27/21 09:50 02/27/21 09:50 Labs: Lab Results 02/27/21 02/27/21 02/27/21 Range/Units 09:50 09:50 09:50 WBC 4.5 (4.5-11.0) X10^3/uL RBC 3.30 L (4.5-5.9) X10^6/uL Hgb 11.7 L (13.5-17.5) g/dL Hct 35.0 L (41-53) % MCV 106.1 H (80-100) fL MCH 35.4 H (26-34) PG MCHC 33.4 (30-36) % RDW 15.4 H (11.6-14.8) % Plt Count 197 (150-400) X10^3/uL Neut % (Auto) 61.4 (50-75) % Lymph % (Auto) 15.4 L (25-40) % [place] % (Auto) 20.1 H (3-14) % Eos % (Auto) 1.8 L (2-4) % Baso % (Auto) 1.3 (0-2) % Neut # (Auto) 2700 (7849-1173) /uL Lymph # (Auto) 700 L (9752-5358) /uL [place] # (Auto) 900 (0-900) /uL Eos # (Auto) 100 (0-450) /uL Baso # (Auto) 100 (0-100) /uL PT 32.4 H (10.1-12.7) SECONDS INR 2.8 H (0.9-1.3) Sodium 137 (137-145) mmol/L Potassium 4.1 (3.4-5.1) mmol/L Chloride 101 (98-107) mmol/L Carbon Dioxide 31 (22-32) mmol/L BUN 18 (9-20) mg/dL Creatinine 0.58 L (0.66-1.25) mg/dL Estimated GFR > 60.0 (>60) mL/min BUN/Creatinine Ratio 31.0 H (6-22) Glucose 99 (80-110) mg/dL Calcium 9.0 (8.4-10.2) mg/dL Total Bilirubin 1.5 H (0.2-1.3) mg/dL AST 39 (17-59) IU/L ALT 22 (<50) IU/L Alkaline Phosphatase 116 (38-126) U/L Total Creatine Kinase 67 (55-170) U/L CK-MB (CK-2) TNP CK-MB (CK-2) Rel Index TNP Troponin I 0.018 (0.01-0.034) ng/mL Total Protein 7.5 (6.3-8.2) g/dL Albumin 4.1 (3.5-5.0) g/dL Globulin 3.4 (1.7-4.1) g/dL Albumin/Globulin Ratio 1.2 (1.0-2.8) Lipase 77 (23-300) U/L Imaging Data Chest x-ray: Radiologist's Impression: [address] [id number] ReportSigned Patient: Da Nevarez EMR#: [id number]: [id number]:[id number]/Sex: 85 / MDate of Service: 02/27/21Loc: EDAccession Number: [id number] Procedure: XR chest 1V Ordering Provider: Bhavik Rowland D.O. PROCEDURE: XR CHEST 1V INDICATIONS: Chest pain TECHNIQUE: One view of the chest was acquired. COMPARISON: [facility], CHEST 2 VIEW, 07/27/2011, 17:13. FINDINGS: Surgical changes and devices: Surgical clips are noted in left axilla.. Lungs and pleura: Lungs are clear. No pleural effusions or pneumothorax. Mediastinum: Mediastinal contours appear normal. Heart size is enlarged. Bones and chest wall: No suspicious bony lesions. Overlying soft tissues appear unremarkable. IMPRESSION: Cardiomegaly. No acute pulmonary pathology. Dictated by: Van Oliveira M.D. on 02/27/2021 at 10:17 Approved by: Van Oliveira M.D. on 02/27/2021 at 10:17 ECG Data Attestation: I personally reviewed and interpreted this ECG as follows: Interpretation: Atrial fibrillation Ventricular rate is 61 Left axis deviation Normal QRS Normal QTC No ST T wave changes MDM Narrative Medical decision making narrative: Patient is currently asymptomatic and has been asymptomatic since the morning. EKG shows AFib but this is chronic for him. Troponins negative greater than 6 hours after the onset of his discomfort. Had a discussion with him and family regarding the symptoms. We will hold on further workup I have him contact his primary provider for follow-up. He is given return precautions. He expressed understanding agreement Discharge Plan Departure Patient Disposition: Home Clinical Impression: Atypical chest pain Instructions: DI for Atypical Chest Pain Activity Restrictions/Additional Instructions: Continue all of your medications as directed. Contact your primary provider for follow-up. Return to the emergency department for any new or worsening symptoms Prescriptions: No Action MULTIVITAMIN (One Daily Multivitamin) 1 tab PO QDAY Qty: 0 RF: 0 warfarin 5 mg tablet 5 mg PO SEE INSTRUCTIONS Qty: 100 RF: 3 digoxin [Lanoxin] 125 mcg (0.125 mg) tablet 125 mcg PO Q DAY Qty: 90 RF: 3 pravastatin 20 mg tablet See Rx Instructions .ROUTE .COMPLEX Qty: 90 RF: 3 omeprazole 20 mg capsule,delayed release(DR/EC) 20 mg PO QDAY Qty: 90 RF: 1 diltiazem HCl 120 mg capsule,extended release 24 hr See Rx Instructions .ROUTE .COMPLEX Qty: 60 RF: 0 Referrals: Wong Peterson MD [Primary Care Provider] -
[2021-02-27 10:01] LABS: Add Manual Diff / Slide Review NO; Basophils Absolute Auto 100 /uL (0-100); Basophils Percent Auto 1.3 % (0-2); Eosinophils Absolute Auto 100 /uL (0-450); Eosinophils Percent Auto 1.8 % (2-4); Hemoglobin 11.7 g/dL (13.5-17.5); Lymphocytes Absolute Auto 700 /uL (1100-4500); Lymphocytes Percent Auto 15.4 % (25-40); Mean Corpuscular HGB Conc 33.4 % (30-36); Mean Corpuscular Hemoglobin 35.4 PG (26-34); Mean Corpuscular Volume 106.1 fL (80-100); Monocytes Absolute Auto 900 /uL (0-900); Monocytes Percent Auto 20.1 % (3-14); Neutrophils Absolute Auto 2700 /uL (1500-7000); Neutrophils Percent Auto 61.4 % (50-75); Platelet Count 197 X10^3/uL (150-400); Red Cell Distribution Width 15.4 % (11.6-14.8); White Blood Cell Count 4.5 X10^3/uL (4.5-11.0)
[2021-02-27 10:07] LABS: INR 2.8 (0.9-1.3); Prothrombin Time 32.4 SECONDS (10.1-12.7)
[2021-02-27 10:11] LABS: Alanine Aminotransferase 22 IU/L (<50); Albumin 4.1 g/dL (3.5-5.0); Albumin Globulin Ratio 1.2 (1.0-2.8); Alkaline Phosphatase 116 U/L (38-126); Aspartate Aminotransferase 39 IU/L (17-59); Bilirubin Total 1.5 mg/dL (0.2-1.3); Blood Urea Nitrogen 18 mg/dL (9-20); Carbon Dioxide 31 mmol/L (22-32); Chloride 101 mmol/L (98-107); Creatine Kinase 67 U/L (55-170); Estimated Glomerular Filt Rate > 60.0 mL/min (>60); Globulin 3.4 g/dL (1.7-4.1); Glucose 99 mg/dL (80-110); HEMOLYSIS < 15 (0-50); Lipase 77 U/L (23-300); Potassium 4.1 mmol/L (3.4-5.1); Sodium 137 mmol/L (137-145); Total Protein 7.5 g/dL (6.3-8.2)
[2021-02-27 10:23] LABS: Troponin I 0.018 ng/mL (0.01-0.034)
[2021-02-27 11:01] VITALS: BP 170/92; PULSE 70; RESP 18; O2SAT 98
== END 2021-02-27 11:07 | disposition home or self-care (01) ==
PROVIDERS: Emergency Provider Emergency Medicine; Family Provider Family Medicine; PCP Family Medicine
DX: R07.89 Other chest pain (principal); I48.20 Chronic atrial fibrillation, unspecified; Z79.01 Long term (current) use of anticoagulants
CPT/HCPCS: 36415; 71045; 80053; 82550; 83690; 84484; 85025; 85610; 93005; 93010; 99283; 99284

== ENCOUNTER → 2021-03-18 13:27 | Outpatient (CLI) | payer MEDICARE, SELFPAY ==
[2020-12-27 19:45] VITALS: BMI 20.3
[2021-03-18 14:34] LABS: COVID-19 CEPHEID PCR (VTM/NP) Negative (Negative)
== END ==
PROVIDERS: Family Provider Family Medicine; PCP Family Medicine; Referring Provider Family Medicine; Visit Provider Family Medicine
DX: Z20.822 Contact with and (suspected) exposure to COVID-19 (principal)
CPT/HCPCS: U0003

== ENCOUNTER → 2021-04-05 16:29 | Outpatient (CLI) | payer MEDICARE, SELFPAY ==
[2020-12-27 19:45] VITALS: BMI 20.3
[2021-04-05 18:33] LABS: BUN Creatinine Ratio 39.4 (6-22); Blood Urea Nitrogen 28 mg/dL (9-20); Calcium 8.9 mg/dL (8.4-10.2); Carbon Dioxide 31 mmol/L (22-32); Chloride 105 mmol/L (98-107); Estimated Glomerular Filt Rate > 60.0 mL/min (>60); Glucose 117 mg/dL (80-110); HEMOLYSIS < 15 (0-50); Potassium 3.9 mmol/L (3.4-5.1); Sodium 141 mmol/L (137-145)
== END ==
PROVIDERS: Family Provider Family Medicine; PCP Family Medicine; Referring Provider Family Medicine; Visit Provider Family Medicine
DX: E87.6 Hypokalemia (principal)
CPT/HCPCS: 36415; 80048

== ENCOUNTER → 2021-05-04 09:35 | Outpatient (CLI) | payer MEDICARE, SELFPAY ==
[2020-12-27 19:45] VITALS: BMI 20.3
[2021-05-04 11:24] LABS: COVID19 -Nasal RAPID Negative (Negative)
== END ==
PROVIDERS: Family Provider Family Medicine; PCP Family Medicine; Visit Provider Physician Assistant
DX: Z20.822 Contact with and (suspected) exposure to COVID-19 (principal); R07.89 Other chest pain; R50.9 Fever, unspecified
CPT/HCPCS: 87635

== ENCOUNTER 2021-10-13 10:15 | Outpatient (RCR) | payer MEDICARE, SELFPAY ==
[2020-12-27 19:45] VITALS: BMI 20.3
== END 2021-10-13 12:15 ==
LOC: CAR 10:15
PROVIDERS: Family Provider Family Medicine; PCP Family Medicine; Referring Provider Internal Medicine Interventional Cardiology; Visit Provider Internal Medicine Interventional Cardiology
DX: Z95.2 Presence of prosthetic heart valve (principal); I35.0 Nonrheumatic aortic (valve) stenosis
CPT/HCPCS: 93798

== ENCOUNTER → 2022-04-12 14:52 | Outpatient (CLI) | payer MEDICARE, SELFPAY ==
[2020-12-27 19:45] VITALS: BMI 20.3
[2022-04-12 16:02] LABS: Add Manual Diff / Slide Review NO; Basophils Absolute Auto 0 /uL (0-100); Basophils Percent Auto 0.8 % (0-2); Eosinophils Absolute Auto 200 /uL (0-450); Eosinophils Percent Auto 5.3 % (2-4); Hematocrit 32.5 % (41-53); Hemoglobin 11.1 g/dL (13.5-17.5); Lymphocytes Absolute Auto 1000 /uL (1100-4500); Lymphocytes Percent Auto 22.2 % (25-40); Mean Corpuscular HGB Conc 34.2 % (30-36); Mean Corpuscular Hemoglobin 35.9 PG (26-34); Mean Corpuscular Volume 104.8 fL (80-100); Monocytes Absolute Auto 800 /uL (0-900); Monocytes Percent Auto 18.6 % (3-14); Neutrophils Absolute Auto 2300 /uL (1500-7000); Neutrophils Percent Auto 53.1 % (50-75); Platelet Count 235 X10^3/uL (150-400); Red Cell Distribution Width 13.5 % (11.6-14.8); White Blood Cell Count 4.4 X10^3/uL (4.5-11.0)
[2022-04-12 16:23] LABS: Alanine Aminotransferase 16 IU/L (<50); Albumin 4.2 g/dL (3.5-5.0); Albumin Globulin Ratio 1.3 (1.0-2.8); Alkaline Phosphatase 66 U/L (38-126); Aspartate Aminotransferase 39 IU/L (17-59); BUN Creatinine Ratio 30.9 (6-22); Bilirubin Total 1.3 mg/dL (0.2-1.3); Blood Urea Nitrogen 21 mg/dL (9-20); Calcium 8.7 mg/dL (8.4-10.2); Carbon Dioxide 28 mmol/L (22-32); Chloride 100 mmol/L (98-107); Cholesterol 155 mg/dL (140-199); Estimated Glomerular Filt Rate > 60 mL/min (>60); Globulin 3.3 g/dL (1.7-4.1); Glucose 84 mg/dL (80-110); HDL Cholesterol 62 mg/dL (40-60); HEMOLYSIS < 15 (0-50); LDL Cholesterol Calculated 80 mg/dL (<100); Potassium 4.8 mmol/L (3.4-5.1); Sodium 135 mmol/L (137-145); Total Protein 7.5 g/dL (6.3-8.2); Triglycerides 65 mg/dL (35-150)
[2022-04-12 16:49] LABS: TSH w/ Reflex to FT4 4.63 uIU/mL (0.47-4.68)
== END ==
PROVIDERS: Family Provider Family Medicine; PCP Family Medicine; Referring Provider Family Medicine; Visit Provider Family Medicine
DX: E78.2 Mixed hyperlipidemia (principal); I10 Essential (primary) hypertension
CPT/HCPCS: 36415; 80053; 80061; 84443; 85025

== ENCOUNTER 2022-07-07 12:40 | Emergency (ER) | payer MEDICARE, SELFPAY ==
[2020-12-27 19:45] VITALS: BMI 20.3
--- NOTE | 2022-07-07 12:43 | DI.CT.S_ITS ---
PROCEDURE: CT STROKE INDICATIONS: code stroke TECHNIQUE: Noncontrast 4.5 mm thick angled axial sections acquired from the foramen magnum to the vertex, with coronal reformats. For radiation dose reduction, the following was used: automated exposure control, adjustment of mA and/or kV according to patient size. COMPARISON: None. FINDINGS: Image quality: Excellent. CSF spaces: Basal cisterns are patent. No extra-axial fluid collections. The ventricles are symmetric in size and shape. Brain: There is an acute intraparenchymal hemorrhage measuring about 3.1 x 3.0 by 1.5 cm with the epicenter in the left thalamus. There is mild surrounding vasogenic edema. Mild mass effect on the left lateral ventricle without significant midline shift or obstruction of the ventricular system. No intraventricular hemorrhage. No subdural or subarachnoid hemorrhage. There is cerebral volume loss for age, with resultant ventricular and sulcal prominence. There are periventricular and deep white matter chronic small vessel ischemic changes. There is intracranial internal carotid artery atherosclerosis. Skull and face: Calvarium and visualized facial bones appear intact, without suspicious lesions. Sinuses: Visualized sinuses and mastoids are clear. IMPRESSION: 1. Acute intracranial hemorrhage in the left thalamus. This may be hypertensive hemorrhage, aneurysm rupture, or hemorrhagic infarct. 2. Discussed with Dr. Rowland in the emergency room at 13:00 hours. This study fulfills neurological imaging criteria for inclusion or exclusion of acute stroke therapies based on available published neurological guidelines. Dictated by: Odalys Choudhary M.D. on 07/07/2022 at 12:58 Approved by: Odalys Choudhary M.D. on 07/07/2022 at 13:04
[2022-07-07 12:45] VITALS: BP 161/74; PULSE 71; RESP 17; TEMP 36.3; O2SAT 98
--- NOTE | 2022-07-07 12:56 | ED.GENADULT ---
HPI - General Adult General Chief complaint: Neuro Symptoms/Deficit Stated complaint: CVA, Trauma Time Seen by Provider: 07/07/22 12:42 Source: patient and EMS Mode of arrival: EMS Limitations: no limitations History of Present Illness HPI narrative: 86-year-old male. He is anticoagulated on Coumadin secondary to atrial fibrillation. Brought in by EMS for evaluation of a ground level fall and right-sided weakness and confusion slurring his words. Approximately 2 hours prior to arrival emergency department the patient had an unwitnessed fall. The patient states that he does remember falling. But it is difficult for him to describe exactly how he fell. He does not have any specific complaints. No chest pain. No shortness of breath. No abdominal pain. No extremity pain. Family is not at bedside for information. Related Data Home Medications Medication Instructions Recorded Confirmed MULTIVITAMIN (One Daily 1 tab PO QDAY ##0 01/02/12 04/21/22 Multivitamin) Previous Rx's Medication Instructions Recorded lisinopril 20 mg tablet 20 mg PO DAILY #30 tabs 08/10/21 triamcinolone acetonide 0.1 % See Rx Instructions topical BID 01/12/22 topical cream #30 grams diltiazem HCl 120 mg See Rx Instructions .Route 01/26/22 capsule,extended release 24 hr .COMPLEX #90 caps pravastatin 20 mg tablet See Rx Instructions .Route 01/26/22 .COMPLEX #90 tabs omeprazole 20 mg capsule,delayed See Rx Instructions .Route 02/09/22 release .COMPLEX #90 caps warfarin 5 mg tablet See Rx Instructions .Route 02/09/22 .COMPLEX #90 tabs Allergies Allergy/AdvReac Type Severity Reaction Status Date / Time No Known Drug Allergies Allergy Verified 04/21/22 09:02 Review of Systems Review of Systems Narrative: The attempted review of systems however was somewhat difficult for patient to adequately describe ROS Unobtainable: All systems reviewed & are unremarkable except as noted in HPI and below Patient History Medical History Anemia Bradycardia Bradycardia Bradycardia Cataract (2012) Chest pain Chicken pox Chronic atrial fibrillation (2000) Colon polyps Coronary artery disease (1995) Diverticular disease Eczema Elevated PSA Essential hypertension (08/22/16) Hyperlipidemia (07/24/11) Measles Melanoma (2008) Mumps Osteoarthritis (arthritis due to wear and tear of joints) Surgical History History of colonoscopy with polypectomy (08/21/12) Status post appendectomy Social History marital status: household members: spouse Smoking Status: Former smoker alcohol intake: never substance use type: does not use Smoking Status: Former smoker alcohol intake frequency: 0-2 drinks per day Substance Use Type: does not use Exam Initial Vital Signs Initial Vital Signs: Vital Signs Temperature 97.3 F L 07/07/22 12:45 Pulse Rate 71 07/07/22 12:45 Respiratory Rate 17 07/07/22 12:45 Blood Pressure 161/74 H 07/07/22 12:45 Pulse Oximetry 98 07/07/22 12:45 Oxygen Delivery Method 07/07/22 12:45 Const General: comfortable and No ill appearing HENMT Head: normal to inspection and normocephalic Face and sinus: normal facial exam Mouth: oral mucosae normal Eyes General: Yes appearance normal, both eyes and all related structures Pupils: PERRL Chest Chest: No crepitus and No tenderness Resp Effort & Inspection: normal respiratory effort Auscultation: clear to auscultation bilaterally Cardio Rate: regular rate Rhythm: regular rhythm Pulses: radial pulses present bilaterally GI Inspection: normal to inspection and non-distended Back/Spine/Pelvis Cervical Spine: No cervical spasm and No cervical spinal tenderness Skin General: no rashes or lesions noted Neuro General: patient alert, patient awake and patient oriented x3 (Oriented to person, knows he is in the hospital, date) Other: Patient does seem to have somewhat of a right-sided neglect. He can overcome and look to the right but has to be directed. Left lower extremity 5/5 strength. Right lower extremity 2/5. Right upper extremity 2/5 Left upper extremity 5/5. Extrem Other: Pelvis is stable. No apparent discomfort with movement of upper and lower extremities. Psych Appearance: grossly normal Scores GCS [place] coma scale eye opening: Spontaneous [place] coma scale verbal response: Orientated [place] coma scale motor response: Obey commands [place] coma scale total score: 15 Course Orders Ordered: ED Orders 07/07/22 12:43 CT Stroke Stat 07/07/22 12:50 Complete Blood Count AUTO DIFF Stat Comprehensive Metabolic Panel Stat Partial Thromboplastin Time Stat Prothrombin Time INR Stat 07/07/22 13:01 CT cervical spine wo con Stat 07/07/22 13:25 CT angio head and neck Stat 07/07/22 13:32 COVID19 -Nasal RAPID/Pre-Proc Stat Nicardipine HCl 25 mg/ Sodium (Chloride) 250 mls @ 50 mls/hr IV TITRATE CRISTIAN; Protocol Discontinued Medications Phytonadione 10 mg/ Sodium (Chloride) 101 mls @ 202 mls/hr IV NOW ONE Stop: 07/07/22 13:20 Last Admin: 07/07/22 13:47 Dose: 202 mls/hr Prothrombin Complex Concent ( Human) 2,500 unit/Miscellaneous 100 mls @ 434.362 mls/hr IV NOW ONE; Protocol Stop: 07/07/22 13:34 Last Admin: 07/07/22 14:07 Dose: Not Given Prothrombin Complex Concent ( Human) 1,500 unit/Miscellaneous 60 mls @ 434.362 mls/hr IV NOW ONE; Protocol Stop: 07/07/22 13:53 Last Admin: 07/07/22 13:59 Dose: 3 unit/kg/min, 434.362 mls/hr Vital Signs Vital signs: Vital Signs - 8 hr 07/07/22 12:45 07/07/22 13:00 07/07/22 13:15 Temperature 97.3 F L Pulse Rate 71 64 63 Respiratory Rate 17 14 16 Blood Pressure 161/74 H 163/72 H 140/77 Pulse Oximetry 98 96 96 Oxygen Delivery Method Room Air Room Air Room Air Medical Decision Making Medical Records Medical records reviewed: Yes I reviewed the patient's medical records. Lab Data Lab results reviewed: Yes I reviewed the patient's lab results. Result diagrams: 07/07/22 12:50 07/07/22 12:50 Labs: Lab Results 07/07/22 07/07/22 07/07/22 Range/Units 12:50 12:50 12:50 WBC 6.8 (4.5-11.0) X10^3/uL RBC 3.02 L (4.5-5.9) X10^6/uL Hgb 11.1 L (13.5-17.5) g/dL Hct 31.0 L (41-53) % MCV 102.6 H (80-100) fL MCH 36.6 H (26-34) PG MCHC 35.7 (30-36) % RDW 13.7 (11.6-14.8) % Plt Count 376 (150-400) X10^3/uL Neut % (Auto) 72.5 (50-75) % Lymph % (Auto) 11.3 L (25-40) % [place] % (Auto) 14.2 H (3-14) % Eos % (Auto) 1.5 L (2-4) % Baso % (Auto) 0.5 (0-2) % Neut # (Auto) 4900 (7837-2387) /uL Lymph # (Auto) 800 L (6160-9298) /uL [place] # (Auto) 1000 H (0-900) /uL Eos # (Auto) 100 (0-450) /uL Baso # (Auto) 0 (0-100) /uL PT 42.9 H (10.1-12.7) SECONDS INR 3.7 H (0.9-1.3) APTT 47 H (26-36) SECONDS Sodium 132 L (137-145) mmol/L Potassium 4.1 (3.4-5.1) mmol/L Chloride 93 L (98-107) mmol/L Carbon Dioxide 29 (22-32) mmol/L BUN 19 (9-20) mg/dL Creatinine 0.53 L (0.66-1.25) mg/dL Estimated GFR > 60 (>60) mL/min BUN/Creatinine Ratio 35.8 H (6-22) Glucose 113 H (80-110) mg/dL Calcium 9.0 (8.4-10.2) mg/dL Total Bilirubin 1.1 (0.2-1.3) mg/dL AST 48 (17-59) IU/L ALT 25 (<50) IU/L Alkaline Phosphatase 98 (38-126) U/L Total Protein 8.7 H (6.3-8.2) g/dL Albumin 4.4 (3.5-5.0) g/dL Globulin 4.3 H (1.7-4.1) g/dL Albumin/Globulin Ratio 1.0 (1.0-2.8) SARS-CoV-2 (PCR) (Negative) 07/07/22 Range/Units 13:30 WBC (4.5-11.0) X10^3/uL RBC (4.5-5.9) X10^6/uL Hgb (13.5-17.5) g/dL Hct (41-53) % MCV (80-100) fL MCH (26-34) PG MCHC (30-36) % RDW (11.6-14.8) % Plt Count (150-400) X10^3/uL Neut % (Auto) (50-75) % Lymph % (Auto) (25-40) % [place] % (Auto) (3-14) % Eos % (Auto) (2-4) % Baso % (Auto) (0-2) % Neut # (Auto) (0953-8861) /uL Lymph # (Auto) (1688-5219) /uL [place] # (Auto) (0-900) /uL Eos # (Auto) (0-450) /uL Baso # (Auto) (0-100) /uL PT (10.1-12.7) SECONDS INR (0.9-1.3) APTT (26-36) SECONDS Sodium (137-145) mmol/L Potassium (3.4-5.1) mmol/L Chloride (98-107) mmol/L Carbon Dioxide (22-32) mmol/L BUN (9-20) mg/dL Creatinine (0.66-1.25) mg/dL Estimated GFR (>60) mL/min BUN/Creatinine Ratio (6-22) Glucose (80-110) mg/dL Calcium (8.4-10.2) mg/dL Total Bilirubin (0.2-1.3) mg/dL AST (17-59) IU/L ALT (<50) IU/L Alkaline Phosphatase (38-126) U/L Total Protein (6.3-8.2) g/dL Albumin (3.5-5.0) g/dL Globulin (1.7-4.1) g/dL Albumin/Globulin Ratio (1.0-2.8) SARS-CoV-2 (PCR) Negative (Negative) Imaging Data Extremity x-ray #1: Radiologist's Impression: [address] [address] [address] Scan Report Signed Patient: Da Nevarez MR#: [id number] : 1935 Acct:[id number] Age/Sex: 86 / M Date of Service: 07/07/22 Loc: ED Accession Number: [id number] ?? Procedure: CT Stroke Ordering Provider: Bhavik Rowland D.O. PROCEDURE:? CT STROKE ? INDICATIONS:? code stroke ? TECHNIQUE:? Noncontrast 4.5 mm thick angled axial sections acquired from the foramen magnum to the vertex, with coronal reformats.? For radiation dose reduction, the following was used:? automated exposure control, adjustment of mA and/or kV according to patient size.? ? COMPARISON:? None. ? FINDINGS:? Image quality:? Excellent.? ? CSF spaces:? Basal cisterns are patent.? No extra-axial fluid collections.? The ventricles are symmetric in size and shape.? ? Brain:? There is an acute intraparenchymal hemorrhage measuring about 3.1 x 3.0 by 1.5 cm with the epicenter in the left thalamus.? There is mild surrounding vasogenic edema.? Mild mass effect on the left lateral ventricle without significant midline shift or obstruction of the ventricular system.? No intraventricular hemorrhage.? No subdural or subarachnoid hemorrhage.? ? There is cerebral volume loss for age, with resultant ventricular and sulcal prominence.? There are periventricular and deep white matter chronic small vessel ischemic changes.? There is intracranial internal carotid artery atherosclerosis.? ? Skull and face:? Calvarium and visualized facial bones appear intact, without suspicious lesions.? ? Sinuses:? Visualized sinuses and mastoids are clear.? ? IMPRESSION:? ? 1. Acute intracranial hemorrhage in the left thalamus.? This may be hypertensive hemorrhage, aneurysm rupture, or hemorrhagic infarct. ? 2. Discussed with Dr. Rowland in the emergency room at 13:00 hours.? ? This study fulfills neurological imaging criteria for inclusion or exclusion of acute stroke therapies based on available published neurological guidelines.? ? ? Dictated by: Odalys Choudhary M.D. on 07/07/2022 at 12:58 ? ? Approved by: Odalys Choudhary M.D. on 07/07/2022 at 13:04?? CT - cervical spine: Radiologist's Impression: [address] [address] [address] Scan Report Signed Patient: Da Nevarez MR#: [id number] : 1935 Acct:[id number] Age/Sex: 86 / M Date of Service: 07/07/22 Loc: ED Accession Number: [id number] ?? Procedure: CT cervical spine wo con Ordering Provider: Bhavik Rowland D.O. PROCEDURE:? CT CERVICAL SPINE WO CON ? INDICATIONS:? fall ? TECHNIQUE:? Noncontrast 3 mm thick sections acquired from the skull base to the T4 level.? Sagittal and coronal reformats were then constructed.? For radiation dose reduction, the following was used:? automated exposure control, adjustment of mA and/or kV according to patient size.? ? COMPARISON:? [facility], CT, CT ANGIO HEAD AND NECK, 07/07/2022, 13:31.? [facility], CT, CT STROKE, 07/07/2022, 12:40. ? FINDINGS:? Image quality:? This examination is somewhat limited by quantum mottle artifact.? ? Bones:? No fractures or dislocations.? Visualized superior ribs are intact.? ? Cervical spine degenerative changes are seen, with moderate to severe disc space narrowing seen at C3-C4, C4-C5, C5-C6, and C6-C7.? There is a degree of vertebral body fusion seen, particularly at C6-C7. ? Soft tissues:? As previously seen, there is acute hemorrhage seen centered within the left thalamus. ? Prevertebral soft tissues are normal in thickness.? No paravertebral hematomas.? No apical pneumothoraces.? Atherosclerotic calcification is noted.? ? ? IMPRESSION:? Negative for fracture. ? Left thalamus hemorrhage again seen. ? Degenerative changes are seen, which are worst inferiorly. ? ? Dictated by: Zaid Devries M.D. on 07/07/2022 at 12:59 ? ? Approved by: Zaid Devries M.D. on 07/07/2022 at 13:00?? CTA - brain/neck: Radiologist's Impression: [address] [address] [address] Scan Report Signed Patient: Da Nevarez MR#: [id number] : 1935 Acct:[id number] Age/Sex: 86 / M Date of Service: 07/07/22 Loc: ED Accession Number: [id number] ?? Procedure: CT angio head and neck Ordering Provider: Bhavik Rowland D.O. PROCEDURE:? CT ANGIO HEAD AND NECK ? INDICATIONS:? bleed ? TECHNIQUE:? Noncontrast images were performed earlier in the day and not repeated.? ? After the administration of intravenous contrast, 1 mm thick sections acquired from the aortic arch through the [place].? Post-contrast 4.5 mm thick sections then re-acquired from the foramen magnum to the vertex.? 3-dimensional aatrkyn-sqadfudok-gruuwnholi (MIP) and/or volume rendering reformats were acquired of the central intracranial vasculature and neck separately. For radiation dose reduction, the following was used:? automated exposure control, adjustment of mA and/or kV according to patient size.? ? COMPARISON:? [facility], CT, CT CERVICAL SPINE WO CON, 07/07/2022, 13:26.? [facility], CT, CT STROKE, 07/07/2022, 12:40. ? FINDINGS:? Image quality:? Excellent.? ? BRAIN:? CSF spaces:? Ventricles are normal in size and shape.? Basal cisterns are patent.? No extra-axial fluid collections.? ? Brain:? As previously seen, there is parenchymal hemorrhage seen, centered within the left thalamus.? No midline shift.? Chavez-white matter interface appears intact.? Pineal region calcification is seen, which is not regarded to be pathologic. ? Skull and face:? Calvarium and facial bones appear intact, without suspicious lesions.? Orbits appear normal.? ? Sinuses:? Sinuses and mastoids are clear.? ? HEAD CT ANGIOGRAPHY:? Anterior circulation:? Intracranial internal carotid arteries are normal in size and flow.? The flow within the paired anterior cerebral arteries is normal and symmetric.? The flow within the middle cerebral arteries is normal and symmetric.? The anterior communicating artery is seen.? No aneurysms are seen.? ? Posterior circulation:? The right V4 segment largely terminates in the right posterior inferior cerebellar artery.? The left V4 segment is within normal limits.? There is a normal appearing basilar artery.? Flow within the posterior cerebral arteries is normal and symmetric.? No aneurysms are seen.? ? NECK CT ANGIOGRAPHY:? Carotid system:? The great vessels demonstrate a conventional anatomy as they arise from the aortic arch.? The origins of the common carotid arteries appear patent.? The common carotid arteries demonstrate normal caliber and courses.? The bifurcation regions demonstrate atherosclerotic irregularity and calcification.? There is 50-60% narrowing seen involving the right proximal internal carotid artery and approximately 40% narrowing seen involving the left proximal internal carotid artery. ? Posterior circulation:? There is approximately 50% narrowing seen involving the origin of the left vertebral artery.? The extracranial portions of the vertebral arteries are otherwise unremarkable.? The left vertebral artery is dominant to the left.? ? Soft tissues:? Visualized neck soft tissues demonstrate no suspicious abnormalities.? ? Bones:? No suspicious bony lesions.? Visualized cervical spine appears normally aligned.? Cervical spine degenerative change is seen, which is worst inferiorly. ? ? IMPRESSION:? Left thalamus hemorrhage is again seen. ? Focal calcification and narrowing can be seen involving the carotid bifurcation regions, right worse than left. ? Approximately 50% narrowing seen involving the origin of the left vertebral artery. ? Any quantitative measurements of stenosis were performed using NASCET criteria.? ? ? Dictated by: Zaid Devries M.D. on 07/07/2022 at 13:01 ? ? Approved by: Zaid Devries M.D. on 07/07/2022 at 13:04 MDM Narrative Medical decision making narrative: Discussed the case with with the Trauma Service at [facility] who accepts the patient in transfer. INR is 3.9. Was given 10 of vitamin K and 1500 units of Kcentra. Nicardipine ordered with a systolic blood pressure goal of less than 160. CT cervical spine is unremarkable. Patient is stable for transport. Family eventually arrived at bedside. They stated that last evening the patient was describing some visual changes. He was driving home and noticed that the lines on the road were blurry and wavy. Will proceed with transfer Critical Care Time Critical Care Time Critical Care Time: Yes Total Critical Care Time: 40 Attestation: The high probability of a clinically significant, sudden or life threatening deterioration of the neurologic system(s) required my full and direct attention, intervention and personal management. The aggregate critical care time was [40] minutes. This time is in addition to time spent performing reported procedures but includes the following: x Data Review and interpretation [x] Patient assessment and monitoring of vital signs [x] Documentation [x] Medication orders and management Discharge Plan Departure Patient Disposition: [facility] Clinical Impression: Intracranial hemorrhage, Anticoagulated on Coumadin Prescriptions: No Action triamcinolone acetonide 0.1 % cream See Rx Instructions topical BID Qty: 30 0RF Rx Instructions: 1 mg topically bid TOP BID MULTIVITAMIN (One Daily Multivitamin) 1 tab PO QDAY Qty: 0 lisinopril 20 mg tablet 20 mg PO DAILY Qty: 30 11RF pravastatin 20 mg tablet See Rx Instructions .ROUTE .COMPLEX Qty: 90 3RF Dose Instruction: TAKE ONE TABLET BY MOUTH DAILY Rx Instructions: TAKE ONE TABLET BY MOUTH DAILY diltiazem HCl 120 mg capsule,extended release 24hr See Rx Instructions .ROUTE .COMPLEX Qty: 90 3RF Dose Instruction: TAKE ONE CAPSULE BY MOUTH DAILY Rx Instructions: TAKE ONE CAPSULE BY MOUTH DAILY warfarin 5 mg tablet See Rx Instructions .ROUTE .COMPLEX Qty: 90 3RF Dose Instruction: TAKE ONE TABLET BY MOUTH DAILY FOR ANTICOAGULATION DIRECTED BY PHYSICIAN Rx Instructions: TAKE ONE TABLET BY MOUTH DAILY FOR ANTICOAGULATION DIRECTED BY PHYSICIAN omeprazole 20 mg capsule,delayed release(DR/EC) See Rx Instructions .ROUTE .COMPLEX Qty: 90 0RF Dose Instruction: TAKE ONE CAPSULE BY MOUTH DAILY Rx Instructions: TAKE ONE CAPSULE BY MOUTH DAILY Referrals: Wong Peterson MD [Primary Care Provider] -
[2022-07-07 13:00] VITALS: BP 163/72; PULSE 64; RESP 14; O2SAT 96
[2022-07-07 13:00] LABS: Add Manual Diff / Slide Review NO; Basophils Absolute Auto 0 /uL (0-100); Basophils Percent Auto 0.5 % (0-2); Eosinophils Absolute Auto 100 /uL (0-450); Eosinophils Percent Auto 1.5 % (2-4); Hemoglobin 11.1 g/dL (13.5-17.5); Lymphocytes Absolute Auto 800 /uL (1100-4500); Lymphocytes Percent Auto 11.3 % (25-40); Mean Corpuscular HGB Conc 35.7 % (30-36); Mean Corpuscular Hemoglobin 36.6 PG (26-34); Mean Corpuscular Volume 102.6 fL (80-100); Monocytes Absolute Auto 1000 /uL (0-900); Monocytes Percent Auto 14.2 % (3-14); Neutrophils Absolute Auto 4900 /uL (1500-7000); Neutrophils Percent Auto 72.5 % (50-75); Platelet Count 376 X10^3/uL (150-400); Red Blood Cell Count 3.02 X10^6/uL (4.5-5.9); Red Cell Distribution Width 13.7 % (11.6-14.8); White Blood Cell Count 6.8 X10^3/uL (4.5-11.0)
--- NOTE | 2022-07-07 13:01 | DI.CT.S_ITS ---
PROCEDURE: CT CERVICAL SPINE WO CON INDICATIONS: fall TECHNIQUE: Noncontrast 3 mm thick sections acquired from the skull base to the T4 level. Sagittal and coronal reformats were then constructed. For radiation dose reduction, the following was used: automated exposure control, adjustment of mA and/or kV according to patient size. COMPARISON: [facility], CT, CT ANGIO HEAD AND NECK, 07/07/2022, 13:31. [facility], CT, CT STROKE, 07/07/2022, 12:40. FINDINGS: Image quality: This examination is somewhat limited by quantum mottle artifact. Bones: No fractures or dislocations. Visualized superior ribs are intact. Cervical spine degenerative changes are seen, with moderate to severe disc space narrowing seen at C3-C4, C4-C5, C5-C6, and C6-C7. There is a degree of vertebral body fusion seen, particularly at C6-C7. Soft tissues: As previously seen, there is acute hemorrhage seen centered within the left thalamus. Prevertebral soft tissues are normal in thickness. No paravertebral hematomas. No apical pneumothoraces. Atherosclerotic calcification is noted. IMPRESSION: Negative for fracture. Left thalamus hemorrhage again seen. Degenerative changes are seen, which are worst inferiorly. Dictated by: Zaid Devries M.D. on 07/07/2022 at 12:59 Approved by: Zaid Devries M.D. on 07/07/2022 at 13:00
[2022-07-07 13:04] LABS: INR 3.7 (0.9-1.3); Prothrombin Time 42.9 SECONDS (10.1-12.7)
[2022-07-07 13:07] LABS: PTT Partial Thromboplastin Tim 47 SECONDS (26-36)
[2022-07-07 13:09] LABS: Alanine Aminotransferase 25 IU/L (<50); Albumin 4.4 g/dL (3.5-5.0); Alkaline Phosphatase 98 U/L (38-126); Aspartate Aminotransferase 48 IU/L (17-59); BUN Creatinine Ratio 35.8 (6-22); Bilirubin Total 1.1 mg/dL (0.2-1.3); Blood Urea Nitrogen 19 mg/dL (9-20); Carbon Dioxide 29 mmol/L (22-32); Chloride 93 mmol/L (98-107); Estimated Glomerular Filt Rate > 60 mL/min (>60); Globulin 4.3 g/dL (1.7-4.1); Glucose 113 mg/dL (80-110); HEMOLYSIS < 15 (0-50); Potassium 4.1 mmol/L (3.4-5.1); Sodium 132 mmol/L (137-145); Total Protein 8.7 g/dL (6.3-8.2)
[2022-07-07 13:15] VITALS: BP 140/77; PULSE 63; RESP 16; O2SAT 96
--- NOTE | 2022-07-07 13:20 | PC.NURSE ---
pt has visual deficits to right field.
--- NOTE | 2022-07-07 13:25 | DI.CT.S_ITS ---
PROCEDURE: CT ANGIO HEAD AND NECK INDICATIONS: bleed TECHNIQUE: Noncontrast images were performed earlier in the day and not repeated. After the administration of intravenous contrast, 1 mm thick sections acquired from the aortic arch through the [place]. Post-contrast 4.5 mm thick sections then re-acquired from the foramen magnum to the vertex. 3-dimensional xaaawzs-ewuugbguu-nbrpssgwgv (MIP) and/or volume rendering reformats were acquired of the central intracranial vasculature and neck separately. For radiation dose reduction, the following was used: automated exposure control, adjustment of mA and/or kV according to patient size. COMPARISON: [facility], CT, CT CERVICAL SPINE WO CON, 07/07/2022, 13:26. [facility], CT, CT STROKE, 07/07/2022, 12:40. FINDINGS: Image quality: Excellent. BRAIN: CSF spaces: Ventricles are normal in size and shape. Basal cisterns are patent. No extra-axial fluid collections. Brain: As previously seen, there is parenchymal hemorrhage seen, centered within the left thalamus. No midline shift. Chavez-white matter interface appears intact. Pineal region calcification is seen, which is not regarded to be pathologic. Skull and face: Calvarium and facial bones appear intact, without suspicious lesions. Orbits appear normal. Sinuses: Sinuses and mastoids are clear. HEAD CT ANGIOGRAPHY: Anterior circulation: Intracranial internal carotid arteries are normal in size and flow. The flow within the paired anterior cerebral arteries is normal and symmetric. The flow within the middle cerebral arteries is normal and symmetric. The anterior communicating artery is seen. No aneurysms are seen. Posterior circulation: The right V4 segment largely terminates in the right posterior inferior cerebellar artery. The left V4 segment is within normal limits. There is a normal appearing basilar artery. Flow within the posterior cerebral arteries is normal and symmetric. No aneurysms are seen. NECK CT ANGIOGRAPHY: Carotid system: The great vessels demonstrate a conventional anatomy as they arise from the aortic arch. The origins of the common carotid arteries appear patent. The common carotid arteries demonstrate normal caliber and courses. The bifurcation regions demonstrate atherosclerotic irregularity and calcification. There is 50-60% narrowing seen involving the right proximal internal carotid artery and approximately 40% narrowing seen involving the left proximal internal carotid artery. Posterior circulation: There is approximately 50% narrowing seen involving the origin of the left vertebral artery. The extracranial portions of the vertebral arteries are otherwise unremarkable. The left vertebral artery is dominant to the left. Soft tissues: Visualized neck soft tissues demonstrate no suspicious abnormalities. Bones: No suspicious bony lesions. Visualized cervical spine appears normally aligned. Cervical spine degenerative change is seen, which is worst inferiorly. IMPRESSION: Left thalamus hemorrhage is again seen. Focal calcification and narrowing can be seen involving the carotid bifurcation regions, right worse than left. Approximately 50% narrowing seen involving the origin of the left vertebral artery. Any quantitative measurements of stenosis were performed using NASCET criteria. Dictated by: Zaid Devries M.D. on 07/07/2022 at 13:01 Approved by: Zaid Devries M.D. on 07/07/2022 at 13:04
--- NOTE | 2022-07-07 13:45 | PC.NURSE ---
with director of services.
[2022-07-07] MEDS: PHYTONADIONE (VIT K1) 10 MG in SODIUM CHLORIDE 0.9% 100 ML 202 MG IV (13:47)
--- NOTE | 2022-07-07 13:56 | PC.NURSE ---
pt daughter just arrived, notified dr fuchs. pt daughter states pt complained when he was driving last night his rt eye vision was curved. they thought it was an issue with his glasses. pt today told her he couldn't see out of his right eye.
[2022-07-07] MEDS: PROTHROMBIN CPLX(PCC)4FACT 1,500 UNIT in ISOOSMOTIC VEHICLE 0 ML 434.362 UNIT IV (13:59)
[2022-07-07 14:03] LABS: COVID19 -Nasal RAPID Negative (Negative)
[2022-07-07 14:21] VITALS: PULSE 66; O2SAT 100
[2022-07-07 14:30] VITALS: BP 170/79; PULSE 66; RESP 16; O2SAT 99
[2022-07-07] MEDS: NICARDIPINE 25 MG in SODIUM CHLORIDE 0.9% 240 ML 50 MG IV (14:36)
== END 2022-07-07 14:40 | disposition short-term general hospital (02) ==
PROVIDERS: Emergency Provider Emergency Medicine; Family Provider Family Medicine; PCP Family Medicine
DX: I62.9 Nontraumatic intracranial hemorrhage, unspecified (principal); Z79.01 Long term (current) use of anticoagulants; Z20.822 Contact with and (suspected) exposure to COVID-19
CPT/HCPCS: 36415; 70450; 70496; 70498; 72125; 80053; 85025; 85610; 85730; 87635; 96365; 99285; 99291; 99292; C9803; J3430; J7168; Q9967